=== PATIENT | male | born 1945 | race Caucasian/White ===

== ENCOUNTER → 2024-01-02 10:19 | Outpatient (REF) | payer MEDICARE, SELFPAY | LOC: RCS 10:19 | PROVIDERS: ATTENDING PHYSICIAN Internal Medicine Cardiovascular Disease; FAMILY PHYSICIAN Nurse Practitioner | DX: I49.3 Ventricular premature depolarization (principal) | CPT/HCPCS: 93225; 93226 ==

== ENCOUNTER → 2024-01-08 10:12 | Outpatient (REF) | payer MEDICARE, SELFPAY | LOC: DHCBC MAIN 10:12 | PROVIDERS: ATTENDING PHYSICIAN Internal Medicine Cardiovascular Disease; FAMILY PHYSICIAN Nurse Practitioner | DX: I49.3 Ventricular premature depolarization (principal) | CPT/HCPCS: 93306 ==

== ENCOUNTER → 2024-02-24 08:46 | Outpatient (REF) | payer MEDICARE, SELFPAY | LOC: RAD 08:46 | PROVIDERS: ATTENDING PHYSICIAN Internal Medicine; FAMILY PHYSICIAN Nurse Practitioner | DX: R09.89 Other specified symptoms and signs involving the circulatory and respiratory systems (principal) | CPT/HCPCS: 71046 ==

== ENCOUNTER 2024-05-22 17:40 | Emergency (ER) | payer MEDICARE, SELFPAY ==
[2024-05-22 17:43] VITALS: BP 140/84
[2024-05-22 18:11] LABS: % Basophils 0.4 % (0-2); % Immature Granulocytes 0.3 % (0-0.5); % Lymphocytes 22.6 % (20.5-51.1); % Monocytes 11.8 % (1.7-9.3); % Neutrophils 64.9 % (42.2-75.2); ALT (SGPT) 43 U/L (0-50); AST (SGOT) 35 U/L (17-59); Absolute Lymphocytes 1.7 10^3/uL (1.2-3.4); Absolute Monocytes 0.9 10^3/uL (0.1-0.6); Absolute Neutrophils 4.9 10^3/uL (1.4-6.5); Albumin 4.2 g/dl (3.5-5.0); Alkaline Phosphatase 108 U/L (38-126); Blood Urea Nitrogen 30 mg/dl (9-20); Calcium 9.4 mg/dl (8.4-10.2); Carbon Dioxide 25 mmol/L (22-30); Chloride 106 mmol/L (98-107); Glucose 130 mg/dl (70-99); Hematocrit 41.9 % (39.0-52.0); Mean Corpuscular Hgb 26.2 pg (27.0-31.0); Mean Corpuscular Volume 84.3 fL (80.0-94.0); Mean Platelet Volume 10.5 fL (7.4-10.4); Nucleated Red Blood Cells % 0 % (-); Platelet Count 208 10^3/uL (130-400); Potassium 4.3 mmol/L (3.5-5.1); Red Blood Cell Count 4.97 10^6/uL (4.70-6.10); Red Cell Dist. Width 19.2 % (11.5-14.5); Sodium 140 mmol/L (135-145); Total Bilirubin 0.6 mg/dl (0.2-1.3); White Blood Cell Count 7.6 10^3/uL (4.8-10.8); eGFR 33.32
[2024-05-22 18:12] LABS: Lipase 43 U/L (23-300)
--- NOTE | 2024-05-22 19:20 | ED.GENMED ---
History of Present Illness
General
Chief Complaint: Abdominal Symptoms
Source: patient and spouse
Exam Limitations: none
Time Seen by Provider: 05/22/24 18:31
History of Present Illness
History of Present Illness:
This is a 79 year old male that comes in with c/o abd pain. States that starting 3 days ago he started to not be able to eat much. States that he was 'spitting up'phlegm. states that he feels bloated. Then this am he tried [place], [employer] and
then he tried to eat a muffin. States that this seemed to be ok. Then tonight he tried a 1/2 of hamburger and he was nauseated, vomiting and feeling bloated. Denies any fever, chills, chest pain, SOB, diarrhea, headache, dizziness, urinary burning.
Past History
Past History
ED Past Medical History: CAD, Cancer (Skin CA), GERD, HTN, Hypercholesterolemia, NIDDM and Other (Neuropathy, Sleep apnea, Kidney disease)
ED Past Surgical History: None and Cardiac (Ablation for PVC's, stent)
Social History
Tobacco: Other (Occasional Cigar)
Alcohol: Occasional
Personal:
Living: with family
Employment: Retired
Review of Systems
Review of Systems
All Other Systems: ROS reviewed and negative except as documented in HPI and ROS
Constitutional: Reports no symptoms; Denies fever or chills
EENT: Reports no symptoms
Respiratory: Reports no symptoms; Denies cough or trouble breathing
Cardiac: Reports no symptoms; Denies chest pain
ABD/GI: Reports abdominal pain, nausea and vomiting; Denies diarrhea
: Reports no symptoms; Denies dysuria, frequency or urgency
Musculoskeletal: Reports no symptoms
Skin: Reports no symptoms
Neurological: Reports no symptoms; Denies dizzy or headache
Psychiatric: Reports no symptoms
Phy Exam
General Physical Exam
General Presentation: no apparent distress
General age: appears stated age
General Skin: warm and dry
General Habitus: elderly
General Mental: alert
General Hydration: appears well hydrated
ENT Exam
ENT Exam: TM's normal, pharynx normal and neck supple
Eye Exam
Eye Exam: EOMI
Cardiovascular Exam
Cardiovascular Exam: no murmur and normal peripheral pulses
Pulmonary Exam
Pulmonary Exam: no respiratory distress, chest non tender, no rhonchi, no wheezing, no cough and other (Rales Left base)
Gastrointestinal Exam
Gastrointestinal Exam: normal bowel sounds, soft, no pulsatile mass, non distended and tender (Slight left sided tenderness)
Musculoskeletal Exam
Musculoskeletal Exam: full ROM and edema (+2 pitting edema of the feet and lower legs)
Skin Exam
Skin Exam: normal color, warm/dry, no petechia and other (areas of Mohs surgery, right ear and nose)
Psychiatric Exam
Psychiatric Exam: normal mood/affect
Course
Orders/Labs/Results
Orders:
Orders
05/22/24 17:47
Complete Blood Count/With Diff Urgent
Comprehensive Metabolic Panel Urgent
Lipase Urgent
05/22/24 18:56
CT Abd/pel (oral only)-DH Only Urgent
Comment:
Reason For Exam: Bloating. Left sided tenderness
Iohexol [Omnipaque] See Protocol PO NOW STA
CR Chest - 2 Views Urgent
Comment:
Reason For Exam: abd pain, rales
05/22/24 19:29
Ondansetron Injectable [Zofran] 4 mg IV NOW STA
05/22/24 19:34
NT-proBNP Urgent
Troponin I Urgent
05/22/24 19:35
Electrocardiogram (*1) Urgent
Reason for Study: Abdominal Pain
EKG- Treatment ONCE
05/22/24 20:55
Urinalysis Reflex To Culture Urgent
Date Specimen was Collected: 05/22/24
Time Specimen was Collected: 20:54
Abnormal Lab Results
05/22/24 05/22/24
17:47 20:55
MCH 26.2 L pg
(27.0-31.0)
MCHC 31.0 L g/dL
(33.0-37.0)
RDW 19.2 H %
(11.5-14.5)
MPV 10.5 H fL
(7.4-10.4)
Absolute Monos (auto) 0.9 H 10^3/uL
(0.1-0.6)
Monocytes % 11.8 H %
(1.7-9.3)
BUN 30 H mg/dl
(9-20)
Creatinine 2.0 H mg/dL
(0.7-1.3)
Glucose 130 H mg/dl
(70-99)
Urine Ketones Trace A
(Negative)
Urine Glucose 3+ A
(Negative)
05/22/24 17:47
05/22/24 17:47
chronic renal insufficience glucose nonfasting. Lipase normal at 43, Troponin <0.012 Pror-BNP 101
Vital Signs
Initial and Last Documented VS:
Initial Vital Signs
Temp Pulse Resp BP Pulse Ox
98.2 F 82 17 140/84 97
05/22/24 17:43 05/22/24 17:43 05/22/24 17:43 05/22/24 17:43 05/22/24 17:43
Last Documented Vital Signs
Temp Pulse Resp BP Pulse Ox
98.2 F 71 20 137/87 94
05/22/24 17:43 05/22/24 22:13 05/22/24 22:13 05/22/24 22:01 05/22/24 21:45
MDM/Problems Addressed
Differential Diagnosis Includes:
worsening kidney function. CHF, Viral syndrome
MDM/Problems Addressed:
This is a 79 year old male that comes in with c/o abd bloating and nausea/vomiting. States that this started 3 days ago. Today he tried multiple things but this did not help and he was vomiting after he tried to eat dinner.
Will check labs, chest x-ray, CT abd. Urine
Back into see patient. Explained that his Blood work shows is chronic renal insufficiency. The CT scan shows you Hiatal hernia but there is nothing acute in the abd/pelvis. There is a nodule noted in the lung that is new. This will need to be
followed up with the PCP and have a CT scan specific for the chest. Patient to return with any concerns.
Chronic conditions affecting care: DM and CAD
Acute Exacerbation and/or Progression of Chronic Illness: CAD
*Radiology
Radiology exam reviewed: radiology read reviewed (Chest-Asymmetric elevation of left diaphragm is again demonstrated, with mild adjacent atelectasis. Lungs are otherwise clear. No vascular congestion or evidence to suggest congestive heart failure.
No Pneumothorax. CT abd/pelvis- Minor diverticulosis without acute diverticulitis. No bowel) and all reviewed NAD by ED Provider (CT cont- no bowel obstruction. Mild constipation. No obstructive uropathy. No acute inflammatory process within the
abdomen or pelvis. Hiatal hernia with associated asymmetric elevation of left diaphragm. 7.4mm pulmonary nodule at the posterior-superior right diaphragmatic margin. This appears new. )
*Pulse Oximetry
Patient hypoxic: no
*Coding Support Specialist Interpretation
Rate: Coding Support Specialist- N/A
*Critical Care Note
Total Time (30-74mins, 75-104mins- exclusive of procedures): Not Applicable
ED Attending Note
-
Portions of this chart may have been created with voice recognition software.� Occasional wrong word or��sound alike� substitutions may have occurred due to the inherent limitations of voice recognition software.
Discharge Plan
Departure
Patient Disposition: Home (Routine Discharge)
Date of Disposition: 05/22/24
Time of Disposition: 23:09
Patient with high blood pressure during this ER visit?: Yes
Condition: Good
Covid-19: Not Applicable
Discharge Problem:
Nausea & vomiting, Abdominal pain
Instructions: Nausea and Vomiting, Adult (DC), Abdominal Pain, BLOOD PRESSURE
Prescriptions:
New
ondansetron 4 mg tablet,disintegrating
4 mg PO Q8H PRN (Reason: nausea and vomiting) Qty: 7 0RF
No Action
glipizide 5 mg Tablet
2.5 mg PO DAILY
atorvastatin 40 mg tablet
40 mg PO QPM Qty: 90 10RF
clopidogrel 75 mg tablet
75 mg PO DAILY Qty: 90 10RF
nitroglycerin 0.4 mg tablet, sublingual
0.4 mg sublingual [id number] PRN (Reason: chest pain) Qty: 25 5RF
Patient Comments:
Pt states he has never had to use this med
pantoprazole 40 mg tablet,delayed release (DR/EC)
40 mg PO DAILY Qty: 90 10RF
aspirin 81 mg Tablet,Delayed Release (Dr/Ec)
81 mg PO DAILY
metoprolol succinate 25 mg Tablet Extended Release 24 Hr
25 mg PO BID Qty: 60 1RF
Referrals:
Liset Doyle CRNP [Family Provider] - Follow up in 2-3 days
Activity Restrictions/Additional Instructions:
As discussed, your blood work shows your chronic renal insufficiency. Your CT is negative for any acute process in the abd/pelvis. There is a new nodule in the right lung. This will need to be followed up with the family doctor and possible a CT of
the chest. Please increase your water intake to 8-8oz glasses daily. Follow up with the family doctor for recheck. IF YOU HAVE ANY OTHER CONCERNS PLEASE RETURN TO THE EMERGENCY ROOM.
Interventions
Interventions:
*Risk Screen - Suicide Last Done: 05/22/24 20:41
*Neglect/Abuse Screening Last Done: 05/22/24 20:41
ED- Fall Risk Assessment Last Done: 05/22/24 20:41
OJ-Hvqvpg-Runlnvlint Assessment Last Done: 05/22/24 20:41
Discharge Date and Time
Print Language: SETSWANA
[2024-05-22 19:26] VITALS: BMI 30.4
[2024-05-22] MEDS: OMNIPAQUE 50 ML PO (19:27)
[2024-05-22] MEDS: ZOFRAN 4 MG IV (19:41)
[2024-05-22 19:45] VITALS: BP 128/76
[2024-05-22 20:08] LABS: NT-proBNP 101 pg/ml; Troponin I < 0.012 ng/ml
[2024-05-22 21:09] LABS: Urine Albumin Trace (Neg - Trace); Urine Bilirubin Negative (Negative); Urine Character Clear (Clear); Urine Color Yellow; Urine Glucose 3+ (Negative); Urine Ketone Trace (Negative); Urine Leukocyte Negative (Negative); Urine Nitrite Negative (Negative); Urine Occult Blood Negative (Negative); Urine Urobilinogen 1+ (Neg - 1+)
[2024-05-22 22:01] VITALS: BP 137/87
[2024-05-22 23:00] VITALS: BP 122/83
== END 2024-05-22 23:30 | disposition home or self-care (01) ==
LOC: EMR 17:40
PROVIDERS: Clinical Nurse Specialist Family Health; Emergency Medicine; EMERGENCY PHYSICIAN Emergency Medicine; FAMILY PHYSICIAN Nurse Practitioner
DX: R11.2 Nausea with vomiting, unspecified (principal); R10.9 Unspecified abdominal pain; R14.0 Abdominal distension (gaseous); R03.0 Elevated blood-pressure reading, without diagnosis of hypertension; J98.11 Atelectasis; K59.00 Constipation, unspecified; K44.9 Diaphragmatic hernia without obstruction or gangrene; R91.1 Solitary pulmonary nodule; E11.22 Type 2 diabetes mellitus with diabetic chronic kidney disease; N18.9 Chronic kidney disease, unspecified; K21.9 Gastro-esophageal reflux disease without esophagitis; E11.40 Type 2 diabetes mellitus with diabetic neuropathy, unspecified; R60.0 Localized edema; E78.00 Pure hypercholesterolemia, unspecified; G47.30 Sleep apnea, unspecified; F17.290 Nicotine dependence, other tobacco product, uncomplicated; Z79.82 Long term (current) use of aspirin; Z79.84 Long term (current) use of oral hypoglycemic drugs
CPT/HCPCS: 99285; 96374; 71046; 74176; 80053; 81003; 83690; 83880; 84484; 85025; 93005

== ENCOUNTER → 2024-08-25 14:04 | Outpatient (REF) | payer MEDICARE, SELFPAY | LOC: HWRAD 14:04 | PROVIDERS: ATTENDING PHYSICIAN Nurse Practitioner | DX: R91.1 Solitary pulmonary nodule (principal); N18.32 Chronic kidney disease, stage 3b | CPT/HCPCS: 71250 ==

== ENCOUNTER → 2024-09-03 08:40 | Outpatient (REF) | payer MEDICARE, SELFPAY | LOC: RSP 08:40 | PROVIDERS: ATTENDING PHYSICIAN Internal Medicine; FAMILY PHYSICIAN Nurse Practitioner | DX: I49.3 Ventricular premature depolarization (principal); Z79.899 Other long term (current) drug therapy | CPT/HCPCS: 94727; 94729; 88738; 94060 ==

== ENCOUNTER 2024-09-20 17:38 | Inpatient (IN) | payer MEDICARE, SELFPAY ==
[2024-09-20] VITALS (15 sets, daily range): BP systolic 104–139; BP diastolic 60–98; BMI 29.6
[2024-09-20 12:06] LABS: % Basophils 0.2 % (0-2); % Eosinophils 0.9 % (0-6); % Immature Granulocytes 0.4 % (0-0.5); % Lymphocytes 8.2 % (20.5-51.1); % Monocytes 7.1 % (1.7-9.3); % Neutrophils 83.2 % (42.2-75.2); Absolute Eosinophils 0.1 10^3/uL (0-0.7); Absolute Lymphocytes 0.8 10^3/uL (1.2-3.4); Absolute Monocytes 0.7 10^3/uL (0.1-0.6); Absolute Neutrophils 8.5 10^3/uL (1.4-6.5); Hematocrit 47.2 % (39.0-52.0); Hemoglobin 14.9 g/dL (13.0-18.0); Mean Corp Hgb Conc. 31.6 g/dL (33.0-37.0); Mean Corpuscular Volume 88.6 fL (80.0-94.0); Mean Platelet Volume 10.6 fL (7.4-10.4); Nucleated Red Blood Cells % 0 % (-); Platelet Count 212 10^3/uL (130-400); Red Blood Cell Count 5.33 10^6/uL (4.70-6.10); Red Cell Dist. Width 18.5 % (11.5-14.5); White Blood Cell Count 10.2 10^3/uL (4.8-10.8)
[2024-09-20 12:27] LABS: NT-proBNP 222 pg/ml
[2024-09-20 12:30] LABS: ALT (SGPT) 46 U/L (0-50); AST (SGOT) 43 U/L (17-59); Albumin 4.5 g/dl (3.5-5.0); Alkaline Phosphatase 87 U/L (38-126); Blood Urea Nitrogen 47 mg/dl (9-20); Calcium 9.9 mg/dl (8.4-10.2); Carbon Dioxide 25 mmol/L (22-30); Chloride 105 mmol/L (98-107); Estimated Creatinine Clearance 25 ml/min; Glucose 167 mg/dl (70-99); Lipase 54 U/L (23-300); Potassium 4.9 mmol/L (3.5-5.1); Sodium 144 mmol/L (135-145); Total Bilirubin 0.8 mg/dl (0.2-1.3); Total Protein 7.7 g/dl (6.3-8.2); eGFR 24.32
--- NOTE | 2024-09-20 12:54 | ED.GENMED ---
History of Present Illness
General
Chief Complaint: Abdominal Pain
Source: patient
Exam Limitations: none
Time Seen by Provider: 09/20/24 11:23
Nursing documentation reviewed up to this point in time: agreed with
History of Present Illness
History of Present Illness:
79 Y/O M with h/o CKD stage III, cad
here with nausea/vomiting since 4 pm last night. pt went out to eat, had a few bites of food (steak, soup) and stopped and felt sick and started vomiting when he went home. he didn't feel like anything was stuck in his throat. he tried 2 left
over doses of zofran from previous ed visitn 05/2024 when he had same thing and it didn't help
pt has still bringing up emesis, mostly just small amount of liquid becuase he isn't able to keep anythin down
he has minimal if any discomfort in the epigastric regin
pt happens to have outpateint Gi f/u at this week, hasn't been seen in a long while
he has barretts and a large hiatal hernia
no blood or black emesis
Past History
Past History
ED Past Medical History: CAD, Cancer (Skin CA), GERD, HTN, Hypercholesterolemia, NIDDM and Other (Neuropathy, Sleep apnea, Kidney disease)
ED Past Surgical History: None and Cardiac (Ablation for PVC's, stent)
Social History
Tobacco: Other (Occasional Cigar)
Alcohol: Occasional
Personal:
Living: with family
Employment: Retired
Review of Systems
Review of Systems
Allergies reviewed?: Yes
All Other Systems: Not applicable
Phy Exam
Physical Exam
Physical Exam:
GENERAL: Alert , in no apparent distress, not regurgitating saliva, tolerating secretions but occasionally vomiting
EYE: pupils equal and reactive
NECK: Supple
ENT: o/p clr, mmm.
CARDIAC: Regular rate and rhythm .
LUNGS: Clear breath sounds bilaterally, no acute respiratory distress, no wheezes/rales/rhonchi
ABDOMEN: Soft, minimal epigastric tenderness no r/g, no cvat, normal bowel sounds
NEUROLOGICAL: Alert and oriented, no focal neuro deficits
SKIN: Warm and dry, skin intact.
MUSCULOSKELETAL: No edema, well perfused. neg nevaeh's sign
PSYCH: Normal and appropriate interaction.
Course
Orders/Labs/Results
Orders:
Orders
09/20/24 11:50
Complete Blood Count/With Diff Urgent
Comprehensive Metabolic Panel Urgent
Lipase Urgent
09/20/24 11:56
NT-proBNP Urgent
09/20/24 11:57
Electrocardiogram (*1) Urgent
Reason for Study: Heart Failure, Left
EKG- Treatment ONCE
CR Chest - 2 Views Urgent
Comment:
Reason For Exam: edema legs
09/20/24 12:21
Metoclopramide [Reglan] 10 mg IV NOW STA
09/20/24 12:58
0.9% Sodium Chloride 250 ml [Nss] 250 ml IV BOLUS
09/20/24 13:43
CT Chest/abd/pel Wo Iv Cont Urgent
Comment:
Reason For Exam: VOMITING/REGURGITATING; LARGE HERNIA
09/20/24 16:24
NG Tube [GI tube insertion- Treatment] ONCE
Abnormal Lab Results
09/20/24
11:50
MCHC 31.6 L g/dL
(33.0-37.0)
RDW 18.5 H %
(11.5-14.5)
MPV 10.6 H fL
(7.4-10.4)
Absolute Neuts (auto) 8.5 H 10^3/uL
(1.4-6.5)
Absolute Lymphs (auto) 0.8 L 10^3/uL
(1.2-3.4)
Absolute Monos (auto) 0.7 H 10^3/uL
(0.1-0.6)
Neutrophils % 83.2 H %
(42.2-75.2)
Lymphocytes % 8.2 L %
(20.5-51.1)
BUN 47 H mg/dl
(9-20)
Creatinine 2.6 H mg/dL
(0.7-1.3)
Glucose 167 H mg/dl
(70-99)
09/20/24 11:50
09/20/24 11:50
Vital Signs
Initial and Last Documented VS:
Initial Vital Signs
Temp Pulse Resp BP Pulse Ox
36.6 C 87 20 109/60 97
09/20/24 10:27 09/20/24 10:27 09/20/24 10:27 09/20/24 10:27 09/20/24 10:27
Last Documented Vital Signs
Temp Pulse Resp BP Pulse Ox
36.6 C 86 20 122/67 97
09/20/24 10:27 09/20/24 16:00 09/20/24 16:00 09/20/24 16:00 09/20/24 12:00
MDM/Problems Addressed
Differential Diagnosis Includes:
gastritis, hiatal hernia, food bolus, bowel obstruction
MDM/Problems Addressed:
nuvia iqbal 79 y/o M with h/o HTN, CAD, CKD stage III
here with vomiting since 4 pm yesterday; ate small amount of food/steak, didn't feel it get stuck
vomited throughout the night, watery/bilious emesis; would get gurgling in his epigastric region and then bright up saliva/gastric contents; not much pain
vitals stable
nontoxic
spitting up occasionally but not really regurgitating liquids
labs mild MYRNA
ct shows: Large hiatal hernia; combination hernia with a sliding component as well as a paraesophageal component.
Gastric volvulus with mesentero-axial rotation. Gastric outlet obstruction secondary to extrinsic compression at the level of the gastric antrum/pylorus, as described. No gastric wall thickening, soft tissue stranding, or fluid within the hernia.
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
i will admit to medicine with GI/surgery consults
dr. gordon and gena both recommend NGT.
*Critical Care Note
Total Time (30-74mins, 75-104mins- exclusive of procedures): Not Applicable
ED Attending Note
-
Portions of this chart may have been created with voice recognition software.� Occasional wrong word or��sound alike� substitutions may have occurred due to the inherent limitations of voice recognition software.
Discharge Plan
Departure
Patient Disposition: Admit
Date of Disposition: 09/20/24
Time of Disposition: 16:14
Admit to: IMU
Presentation/result/management discussed w/ accepting MD/DO: Hospitalist
Condition: Fair
Covid-19: Not Applicable
Discharge Problem:
Gastric volvulus
Prescriptions:
No Action
glipizide 5 mg Tablet
2.5 mg PO DAILY
atorvastatin 40 mg tablet
40 mg PO QPM Qty: 90 10RF
clopidogrel 75 mg tablet
75 mg PO DAILY Qty: 90 10RF
nitroglycerin 0.4 mg tablet, sublingual
0.4 mg sublingual [id number] PRN (Reason: chest pain) Qty: 25 5RF
Patient Comments:
Pt states he has never had to use this med
pantoprazole 40 mg tablet,delayed release (DR/EC)
40 mg PO DAILY Qty: 90 10RF
aspirin 81 mg Tablet,Delayed Release (Dr/Ec)
81 mg PO DAILY
metoprolol succinate 25 mg Tablet Extended Release 24 Hr
25 mg PO BID Qty: 60 1RF
ondansetron 4 mg tablet,disintegrating
4 mg PO Q8H PRN (Reason: nausea and vomiting) Qty: 7 0RF
Referrals:
Liset Doyle CRNP [Family Provider] -
Interventions
Interventions:
*Risk Screen - Suicide Last Done: 09/20/24 10:27
*General Assessment Last Done: 09/20/24 12:03
*Neglect/Abuse Screening Last Done: 09/20/24 10:27
*ED COVID-19 Vaccine History Last Done: 09/20/24 12:01
WB-Ojqimu-Ynutbvfjhu Assessment Last Done: 09/20/24 12:00
Discharge Date and Time
Print Language: AFGHAN
[2024-09-20] MEDS: REGLAN 10 MG IV (12:56)
[2024-09-20] MEDS: NSS 250 IV (13:50)
--- NOTE | 2024-09-20 16:27 | HPS.HSE ---
Family Physician
-
Family Physician: FAB Veras
Chief Complaint
-
abdominal pain
History of Present Illness
Patient is a 79-year-old male with past medical history significant for chronic kidney disease 3b, CAD, hyperlipidemia, hypertension, type 2 diabetes and GERD who presented to [facility] ED for evaluation of abdominal pain with nausea and vomiting
for past 24-hours. Patient reports normal bowel movement 2 days ago. He has had decreased appetite for 6+ months since Jardiance with started and has lost approximately 30 pounds since then. Patient denies any fever, chills, shortness of breath,
cough, chest pain, constipation, diarrhea or urinary symptoms.
Medical History
Past Medical History
Past Medical History: Reports Other
Additional Past Medical History:
chronic kidney disease 3b
CAD
hyperlipidemia
hypertension
type 2 diabetes
GERD
malignant melanoma (1992)
Past Surgical History: Reports Other
Additional Past Surgical History:
cardiac stent
MOHS
cardiac ablation
Social History
Tobacco: Non-smoker
Alcohol: Occasional
Drug: None
Personal:
Living: With Family
Employment: Retired
Family History
Family History: Not pertinent
Allergies / Home Medications
Allergies reflects when Allergies were last updated in [facility].
Home Medications with original date entered in [facility]
Allergy/Medication List:
Allergies
Allergy/AdvReac Type Severity Reaction Status Date / Time
No Known Allergies Allergy Verified 09/20/24 10:27
Home Medications
glipizide 5 mg tablet 2.5 mg PO DAILY 03/01/23
pantoprazole 40 mg tablet,delayed release 40 mg PO DAILY #90 tabs 03/01/23
aspirin 81 mg tablet,delayed release 81 mg PO DAILY 06/13/23
atorvastatin 80 mg tablet (Lipitor) 80 mg PO QPM 09/20/24
bismuth subsalicylate 262 mg tablet (Pepto-Bismol) 524 mg PO DAILYPRN PRN gerd 09/20/24
empagliflozin 10 mg tablet (Jardiance) 10 mg PO DAILY 09/20/24
lisinopril 10 mg tablet 10 mg PO DAILY 09/20/24
ondansetron 4 mg disintegrating tablet 4 mg PO Q8HPRN PRN nausea and vomiting 09/20/24
simethicone 80 mg chewable tablet 80 mg PO BIDPRN PRN gas pains 09/20/24
Review of Systems
-
History Source: Patient
Constitutional: Reports Weight Loss and Sleep Disturbance
EENT: Reports No Symptoms
Respiratory: Reports No Symptoms
Cardiac: Reports No Symptoms
Abdomen/GI: Reports Abdominal Pain, Nausea and Vomiting
: Reports No Symptoms
Musculoskeletal: Reports No Symptoms
Skin: Reports No Symptoms
Neurological: Reports No Symptoms
Endocrine: Reports No Symptoms
Hematologic/Lymphatic: Reports No Symptoms
Psych: Reports No Symptoms
Physical Exam
Vital Signs
Vital Signs
Temp Pulse Resp BP Pulse Ox
97.8 F 86 20 122/67 97
09/20/24 10:27 09/20/24 16:00 09/20/24 16:00 09/20/24 16:00 09/20/24 12:00
Physical Exam
General: Well Developed, Well Nourished, No Apparent Distress, Conversant and Obese
HEENT: NormoCephalic, Moist mucous membranes, Atraumatic, [place] Conjunctivae, Nose Appears Normal and Ears Appear Normal
Respiratory: Clear and Non Labored Respirations; No Wheezes, Rales, Rhonchi or Crackles
Cardiac: S1/S2 and Regular Rhythm; No Murmur, Rub or Gallop
Breast: Deferred by me
GI: Soft, Non Tender, Distended and Other (no bowel sounds auscultated, NGT in place for decompression); No Organomegaly
Rectal: Deferred by Provider
Musculoskeletal: No Clubbing, No Cyanosis and No Edema
Skin: Warm and IV/Catheter Site; No Rash
Neuro: Awake, Alert, AO x 3 and Nonfocal/grossly intact
Hematologic/Lymphatic: No Lymphadenopathy
Psych: Calm and Intact Judgment/Insight
Laboratory Results
-
09/20/24 11:50
09/20/24 11:50
Laboratory Results
Total Bilirubin 0.8 mg/dl (0.2-1.3) 09/20/24 11:50
AST 43 U/L (17-59) 09/20/24 11:50
ALT 46 U/L (0-50) 09/20/24 11:50
Alkaline Phosphatase 87 U/L (38-126) 09/20/24 11:50
Lipase 54 U/L (23-300) 09/20/24 11:50
Data Reviewed
-
Diagnostic Radiology: Report Reviewed by me (CXR: Stable appearance of the chest, including large hiatal hernia and asymmetric elevation of left diaphragm. No acute cardiopulmonary process.)
CT Scan: Report Reviewed by me (abd: Large hiatal hernia; combination hernia with a sliding component as well as a paraesophageal component. Gastric volvulus with mesentero-axial rotation. Gastric outlet obstruction secondary to extrinsic
compression at the level of the gastric antrum/pylorus, as described. No gastric wall thicke)
Medical Tests (Nuc Med, Echo, EKG etc): Report Reviewed by me (EKG: SINUS RHYTHM WITH 1ST DEGREE A-V BLOCK WITH PREMATURE ATRIAL COMPLEXES WITH Aberrant conduction LEFT ANTERIOR FASCICULAR BLOCK POSSIBLE LATERAL INFARCT , AGE UNDETERMINED)
Lab Data: Labs Reviewed by me (BUN 47, Creat 2.6)
Impression/Plan
-
IMPRESSION/PLAN:
#Gastric volvulus with mesentero-axial rotation
#Gastric outlet obstruction secondary to extrinsic compression at the level of the gastric antrum/pylorus
CXR: As before, there is a large hiatal hernia with asymmetric elevation of left diaphragm. Stable. Air-fluid level within the stomach.
No evidence of pneumonia or congestive heart failure. No pneumothorax or pleural effusion.
Chest/Abd CT: Large hiatal hernia; combination hernia with a sliding component as well as a paraesophageal component.
Gastric volvulus with mesentero-axial rotation. Gastric outlet obstruction secondary to extrinsic compression at the level of the gastric antrum/pylorus, as described. No gastric wall thickening, soft tissue stranding,
or fluid within the hernia.
Nonspecific soft tissue stranding of the distal periaortic fat extending along the iliac vessels, in a relatively symmetric bilateral fashion. Exact etiology uncertain. Possibly nonspecific inflammatory changes
(retroperitoneal fibrosis), or vascular inflammatory condition/vasculitis. No aneurysm.
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 Further evaluation/characterization with nonemergent follow-up MRI recommended.
- Admit to med/surg
- GI consult
- General surgery consult
- NPO
- IVF
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
- GI Consult
#chronic kidney disease 3b
BUN 47, Creat 2.6
- IVF
- trend creatine
#CAD
#hyperlipidemia
- continue aspirin and atorvastatin
#benign hypertension
- hold amlodipine for MYRNA
- monitor VS
#type 2 diabetes
- hold glipizide and Jardiance
- Accuchecks AC & HS
- SSI
#GERD
- continue pantoprazole
#malignant melanoma (1992)
Code Status: Full Code
DVT Prophylaxis: SCDs
--- NOTE | 2024-09-20 18:04 | W.PN.UPDATE ---
Update Note
Progress Note Update
This note serves as an addendum to the H&P by automobile sales representative ROBERT Gwendolyn Porter
HPI
79M HX CKD3b,CAD, HTN HLD, T2DM seen at ER:
- evaluation of abdominal pain with nausea and vomiting for past 24-hours.
- normal bowel movement 2 days
- decreased appetite for 6+ months since Jardiance and lost approximately 30 pounds since then.
ROS
Denies any fever, chills, shortness of breath, cough, chest pain, constipation, diarrhea or urinary symptoms.
PHX
chronic kidney disease 3b
CAD
hyperlipidemia
hypertension
type 2 diabetes
GERD
malignant melanoma (1992)
Past Surgical History: Reports Other
Additional Past Surgical History:
cardiac stent
MOHS
cardiac ablation
Vital Signs
Temp Pulse Resp BP Pulse Ox
97.8 F 86 20 122/67 97
09/20/24 10:27 09/20/24 16:00 09/20/24 16:00 09/20/24 16:00 09/20/24 12:00
PE
Gen: Not toxic , conversant
HEENT: moist OM
Neck: supple
Lungs: Non Labored Respirations
Cor:S1/S2 and Regular Rhythm
Abdomen: Soft, Non Tender, Distended , no bowel sounds auscultated,
NGT in place for decompression
SUPERVISOR PRODUCT INSPECTION: Awake, Alert, AO x 3
MS:
Psych:
Vital Signs
Temp Pulse Resp BP Pulse Ox
97.8 F 86 20 122/67 97
09/20/24 10:27 09/20/24 16:00 09/20/24 16:00 09/20/24 16:00 09/20/24 12:00
CXR:
As before, there is a large hiatal hernia with asymmetric elevation of left diaphragm. Stable. Air-fluid level within the stomach. No evidence of pneumonia or congestive heart failure. No pneumothorax or pleural effusion.
CT C/A/P wo IV cont
- Large hiatal hernia; combination hernia with a sliding component as well as a paraesophageal component.
Gastric volvulus with mesentera-axial rotation.
- Gastric outlet obstruction secondary to extrinsic compression at the level of the gastric antrum/pylorus, as described.
No gastric wall thickening, soft tissue stranding, or fluid within the hernia.
- Nonspecific soft tissue stranding of the distal periaortic fat extending along the iliac vessels, in a relatively symmetric bilateral fashion.
Exact etiology uncertain. Possibly nonspecific inflammatory changes (retroperitoneal fibrosis), or vascular inflammatory condition/vasculitis. No aneurysm.
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
Further evaluation/characterization with nonemergent follow-up MRI recommended.
ASSESSMENT & PLAN
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
- MRI abdomen
- await GI cs
Gastric volvulus c/w gastric outlet obstruction 2/2 extrinsic compression at the level of the gastric antrum/pylorus
- NGT for decompression
- NPO and IVF
- Narcotic analgesia PRN
- GI consult
- General surgery consult
MYRNA due to volume contraction form N/V GI loss
CKD3b baseline Creat low 2s with b/l eGFR low 30s
- IVF and trend Cr
CAD HX
Hyperlipidemia
- continue aspirin and atorvastatin
Benign hypertension
- continue metoprolol
T2DM
- hold Glipizide
- add ISS Low
GERD
- IV pantoprazole in place of PO
HX malignant melanoma (1992)
DVT Px: SCD
Full code
IP MS
--- NOTE | 2024-09-20 19:00 | EDRN ---
Report received, patient resting comfortably in the chair, call roth in reach.
--- NOTE | 2024-09-20 21:13 | EDRN ---
Helped patient get into bed and provided a new gown, resting comfortably with call roth in reach, NG tube is draining, will continue to monitor, released admission orders
[2024-09-20] MEDS: LR 1000 IV (21:25)
--- NOTE | 2024-09-20 22:42 | EDRN ---
Patient stood to urinate and back in bed resting comfortably at this time, call roth in reach.
[2024-09-21] VITALS (7 sets, daily range): BP systolic 114–144; BP diastolic 66–86
[2024-09-21] MEDS: ZOFRAN 4 MG IV ×2 (01:34→11:23)
[2024-09-21 01:40] LABS: Glucose - Point of Care 126 mg/dl (70-99)
[2024-09-21 06:31] LABS: Hematocrit 45.9 % (39.0-52.0); Hemoglobin 14.3 g/dL (13.0-18.0); Mean Corp Hgb Conc. 31.2 g/dL (33.0-37.0); Mean Corpuscular Hgb 27.6 pg (27.0-31.0); Mean Corpuscular Volume 88.6 fL (80.0-94.0); Mean Platelet Volume 10.7 fL (7.4-10.4); Platelet Count 193 10^3/uL (130-400); Red Blood Cell Count 5.18 10^6/uL (4.70-6.10); Red Cell Dist. Width 18.9 % (11.5-14.5); White Blood Cell Count 10.5 10^3/uL (4.8-10.8)
[2024-09-21 06:51] LABS: Blood Urea Nitrogen 55 mg/dl (9-20); Calcium 9.4 mg/dl (8.4-10.2); Carbon Dioxide 30 mmol/L (22-30); Chloride 106 mmol/L (98-107); Estimated Creatinine Clearance 26 ml/min; Glucose 137 mg/dl (70-99); Potassium 4.2 mmol/L (3.5-5.1); Sodium 146 mmol/L (135-145)
[2024-09-21] MEDS: PROTONIX IV 40 MG IV (07:44)
[2024-09-21] MEDS: NSS (PRESERVATIVE FREE) 10 ML IV (07:44)
[2024-09-21 07:52] LABS: Glucose - Point of Care 145 mg/dl (70-99)
--- NOTE | 2024-09-21 08:08 | CON.GI ---
Consultation
-
Date/Time Consultation Requested: 09/20/2024,20:51
Date/Time Consultation Performed: 09/21/2024,08:10
Requesting Provider: Gwendolyn Porter
Performing Provider: Francheska Rust
Reason for Consultation: Gastric Volvulus,Pancreatic mass
Medical History
Chief Complaint / HPI
Chief Complaint: Abdominal distension associated with nausea and vomiting
History of Present Illness:
Patient is a 79 yr old male with past medical history of Type2 DM,Benign hypertension,CAD,CKD3b,Hyperlipidemia,hiatal hernia and GERD.According to the patient he was in his usual state of health 1 day ago,he went out for dinner with his family and
had soup,couple of bites of steak and bread and then he started feeling pain in his abdomen,that was sudden in onset,progressive,non-radiating and intensified gradually.He came home and started throwing up,he had several episodes of vomiting ,every
10-15min,projectile and contact food particles but no blood.He ended up in emergency due to excessive vomiting and abdominal pain.
He reports a similar but less intense symptoms in last summer.He is aware of his hiatal hernia.He also reports 30lbs weight loss since starting Jardiance for his diabetes 6-8 months ago and decreased appetite since then.
On systemic review he denies any fever,chills,sob,palpitations,joint pains,constipation,diarrhea,weakness,anxiety or depression.
Past Medical History
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
Past Surgical History: Other (cardiac stent, MOHS, cardiac ablation)
Social History
Tobacco: Non-Smoker
Alcohol: Occasional
Drug: None
Personal:
Living: With Family
Employment: Retired
Family History
Family History: Reviewed & Not Pertinent
Allergies / Home Medications
Allergy/AdvReac Type Severity Reaction Status Date / Time
No Known Allergies Allergy Verified 09/20/24 10:27
�Medication �Instructions �Recorded
glipizide 5 mg tablet 2.5 mg PO DAILY 03/01/23
pantoprazole 40 mg tablet,delayed 40 mg PO DAILY #90 tabs 03/01/23
release
aspirin 81 mg tablet,delayed 81 mg PO DAILY 06/13/23
release
amiodarone 200 mg tablet 200 mg PO BID 09/20/24
amlodipine 10 mg tablet (Norvasc) 10 mg PO DAILY 09/20/24
atorvastatin 80 mg tablet (Lipitor) 80 mg PO QPM 09/20/24
bismuth subsalicylate 262 mg 524 mg PO DAILYPRN PRN gerd 09/20/24
tablet (Pepto-Bismol)
empagliflozin 10 mg tablet 10 mg PO DAILY 09/20/24
(Jardiance)
lisinopril 10 mg tablet 10 mg PO DAILY 09/20/24
ondansetron 4 mg disintegrating 4 mg PO Q8HPRN PRN nausea and 09/20/24
tablet vomiting
simethicone 80 mg chewable tablet 80 mg PO BIDPRN PRN gas pains 09/20/24
Review of Systems
-
All other systems: A 12 pt ROS was Negative except as stated above in HPI
Vital Signs
Temp Pulse Resp BP Pulse Ox
97.9 F 79 14 128/78 96
09/21/24 07:43 09/21/24 07:43 09/21/24 07:43 09/21/24 07:43 09/21/24 07:43
Physical Exam
Exam
General: Well Developed, Well Nourished and Other (NG tube in place )
HEENT: Anicteric and Moist Mucous Membranes
Respiratory: Clear and Other (No wheezes,ronchi or rales)
Cardiac: S1/S2 and Regular Rhythm
GI: Soft, Non Tender and Other (decreased bowel sounds)
Genito-urinary: No Costovertebral Tender
Musculoskeletal: No Clubbing and Other (bilateral pitting pedal edema)
Skin: Other (several SKs and AKs)
Neuro: Awake, Oriented and No Motor Deficits
Psych: Calm and Other (Pleasant and cooperative)
Results
WBC 10.5 10^3/uL (4.8-10.8) 09/21/24 05:07
Hgb 14.3 g/dL (13.0-18.0) 09/21/24 05:07
Hct 45.9 % (39.0-52.0) 09/21/24 05:07
MCV 88.6 fL (80.0-94.0) 09/21/24 05:07
Plt Count 193 10^3/uL (130-400) 09/21/24 05:07
Absolute Neuts (auto) 8.5 10^3/uL (1.4-6.5) H 09/20/24 11:50
Sodium 146 mmol/L (135-145) H 09/21/24 05:08
Potassium 4.2 mmol/L (3.5-5.1) 09/21/24 05:08
Chloride 106 mmol/L (98-107) 09/21/24 05:08
Carbon Dioxide 30 mmol/L (22-30) 09/21/24 05:08
BUN 55 mg/dl (9-20) H 09/21/24 05:08
Creatinine 2.5 mg/dL (0.7-1.3) H 09/21/24 05:08
Calcium 9.4 mg/dl (8.4-10.2) 09/21/24 05:08
Total Bilirubin 0.8 mg/dl (0.2-1.3) 09/20/24 11:50
AST 43 U/L (17-59) 09/20/24 11:50
ALT 46 U/L (0-50) 09/20/24 11:50
Alkaline Phosphatase 87 U/L (38-126) 09/20/24 11:50
Lipase 54 U/L (23-300) 09/20/24 11:50
Diagnostic Image Results:
CT CHEST/ABDOMEN/PELVIS 09/20/2024
IMPRESSION:
Large hiatal hernia; combination hernia with a sliding component as well as a paraesophageal component.
Gastric volvulus with mesentero-axial rotation. Gastric outlet obstruction secondary to extrinsic compression at the level of the gastric antrum/pylorus, as described. No gastric wall thickening, soft tissue stranding, or fluid within the hernia.
Nonspecific soft tissue stranding of the distal periaortic fat extending along the iliac vessels, in a relatively symmetric bilateral fashion. Exact etiology uncertain. Possibly nonspecific inflammatory changes (retroperitoneal fibrosis), or
vascular inflammatory condition/vasculitis. No aneurysm.
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 Further evaluation/characterization with nonemergent follow-up MRI recommended.
CHEST X-RAY 09/20/2024
IMPRESSION:
Stable appearance of the chest, including large hiatal hernia and asymmetric elevation of left diaphragm. No acute cardiopulmonary process.
Prior GI Procedures:
EGD:2012
Impression: - Esophageal mucosal changes consistent with
short-segment Barnhart's esophagus.
- Gastritis. This was biopsied.
- Normal gastric body. This was biopsied.
- Normal first part of the duodenum. Biopsy was
performed.
- Mucosa was biopsied in 4 quadrants at intervals of 1
cm.
Colonoscopy:2012
Impression: - One 10 mm polyp in the ascending colon. Resected and
retrieved.
- Diverticulosis in the transverse colon.
- Internal hemorrhoids.
Assessment / Plan
-
IMPRESSION
A 79y/M with PMH of DMtype2,Benign hypertension,CAD,GERD,Hiatal hernia who presented with nausea,vomiting and abdominal pain.
Last bowel movement two days ago
Air fluid level in stomach-consistent with Gastric volvulus
He is NPO,has NGT in place and is on IV Fluids.
He reports feeling better with improved pain since night,no vomiting since night
No NG output since night
Feeling queasy but attributes it to being NPO since night
ASSESSMENT/PLAN
1.Gastric Volvulus
Most likely secondary to hiatal hernia along with long standing GERD
NGT is showing no output
Lfts within normal limits,lipase normal
Do NGT flush and keep monitoring any output
Keep NPO
Await surgery consult
Discussed with patient the diagnosis and management options available
Keep monitoring for symptoms and gastric output
2. Pancreatic mass
CT CHEST/ABDOMEN/PELVIS 09/20/2024
IMPRESSION:
Large hiatal hernia; combination hernia with a sliding component as well as a paraesophageal component.
Gastric volvulus with mesentero-axial rotation. Gastric outlet obstruction secondary to extrinsic compression at the level of the gastric antrum/pylorus, as described. No gastric wall thickening, soft tissue stranding, or fluid within the hernia.
Nonspecific soft tissue stranding of the distal periaortic fat extending along the iliac vessels, in a relatively symmetric bilateral fashion. Exact etiology uncertain. Possibly nonspecific inflammatory changes (retroperitoneal fibrosis), or
vascular inflammatory condition/vasculitis. No aneurysm.
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 Further evaluation/characterization with nonemergent follow-up MRI recommended.
Await surgical consult
Eventual MRI of abdomen with contrast,inpatient vs outpatient
Serum lipase normal
Serum lfts normal
Can do a CA19-9
-
-
Thank you for consultation and allowing me to participate in the patient's care. Please call the it systems analyst consultant GI physician during the after hours with any questions or concerns.
[2024-09-21 09:58] LABS: Glycohemoglobin (HgbA1c) 6.4 % (4.0-5.6)
--- NOTE | 2024-09-21 10:10 | CON.GS ---
Addendum entered and electronically signed by Abilio Arnold MD 09/22/24 08:19:
Delayed entry note. Patient seen and examined on 09/21/2024.
I saw and examined the patient independently.
The Plastics Scientist's note was reviewed and I agree with the note, assessment and plan except where noted below.
Comment: This is a 79-year-old male with significant cardiac history, diabetes and known hiatal hernia presents with nausea vomiting. Initial NG tube was malpositioned and replaced with good effect.
Will plan for an upper GI on 09/22/2024
N.p.o., IV fluids, NG tube to low intermittent wall suction.
Possible surgical repair this admission versus as an outpatient depending on clinical course and findings.
General surgery will continue to follow
Original Note:
Consultation
-
Date/Time Consultation Requested: 09/20/242050
Requesting Provider: German
Medical History
-
Chief Complaint: vomiting
History of Present Illness:
Mr Ortega is a 79 yo male with a history of skin ca s/p MOHS, CAD s/p PCI 02/2023, PVC/VT ablation 06/13/23, CKD, NIDDM, GERD, and known hiatal hernia who presents with nausea and vomiting which developed while he was eating dinner at a restaurant.
He initially had bread and soup and then a few bites into his steak he began having symptoms of upper abdominal discomfort with vomiting. He notes that he has had episodes like this a few times before and was told it was due to hiatal hernia
although he has never followed up with a surgeon to discuss repair. He notes no further nausea or vomiting this am. An NGT was placed in the ED with recorded output of 570ml. He denies abdominal pain currently.
Past Medical History
Past Medical History: Arrhythmias, CAD (CAD with PCI 02/2023), Cancer (melanoma skin s/p mohs), GERD, HTN, Hypercholesterolemia, NIDDM, Renal Failure (CKD) and Other (JOÃO)
Past Surgical History: Cardiac (PCI 02/2023, PVC/VT ablation 06/13/23 ) and Other (MOHs)
Social History
Tobacco: Non-Smoker
Alcohol: Occasional
Personal:
Living: With Family
Family History
Family History: CAD
Allergies / Home Medications
Allergy/AdvReac Type Severity Reaction Status Date / Time
No Known Allergies Allergy Verified 09/20/24 10:27
�Medication �Instructions �Recorded �Confirmed �Type
glipizide 5 mg tablet 2.5 mg PO DAILY 03/01/23 09/20/24 History
pantoprazole 40 mg tablet,delayed 40 mg PO DAILY #90 tabs 03/01/23 09/20/24 Rx
release
aspirin 81 mg tablet,delayed 81 mg PO DAILY 06/13/23 09/20/24 History
release
amiodarone 200 mg tablet 200 mg PO BID 09/20/24 09/20/24 History
amlodipine 10 mg tablet (Norvasc) 10 mg PO DAILY 09/20/24 09/20/24 History
atorvastatin 80 mg tablet (Lipitor) 80 mg PO QPM 09/20/24 09/20/24 History
bismuth subsalicylate 262 mg 524 mg PO DAILYPRN PRN gerd 09/20/24 09/20/24 History
tablet (Pepto-Bismol)
empagliflozin 10 mg tablet 10 mg PO DAILY 09/20/24 09/20/24 History
(Jardiance)
lisinopril 10 mg tablet 10 mg PO DAILY 09/20/24 09/20/24 History
ondansetron 4 mg disintegrating 4 mg PO Q8HPRN PRN nausea and 09/20/24 09/20/24 History
tablet vomiting
simethicone 80 mg chewable tablet 80 mg PO BIDPRN PRN gas pains 09/20/24 09/20/24 History
Review of Systems
-
History Source: Patient
All other systems: Negative unless noted
A 10 point review of systems was completed, and was negative except as per HPI.
Physical Exam
Vital Signs
Temp Pulse Resp BP Pulse Ox
97.9 F 79 14 128/78 96
09/21/24 07:43 09/21/24 07:43 09/21/24 07:43 09/21/24 07:43 09/21/24 07:43
09/20/24 09/21/24 09/22/24
06:59 06:59 06:59
Actual Weight 96.2 kg
Body Mass Index (BMI) 29.6
Lab Results
09/21/24 05:07
09/21/24 05:08
WBC 10.5 10^3/uL (4.8-10.8) 09/21/24 05:07
Hgb 14.3 g/dL (13.0-18.0) 09/21/24 05:07
Hct 45.9 % (39.0-52.0) 09/21/24 05:07
Plt Count 193 10^3/uL (130-400) 09/21/24 05:07
Abs Immat Gran (auto) 0.0 10^3/uL (0-0.05) 09/20/24 11:50
Neutrophils % 83.2 % (42.2-75.2) H 09/20/24 11:50
Physical Exam
General: No Apparent Distress
HEENT: Anicteric and Other (scalp skin defect); Negative Moist Mucous Membranes
Respiratory: Non Labored Respirations
GI: Soft, Non Tender, Non Distended and Other (NGT in place with mucoid outputs)
Skin: Warm and Dry
Neuro: Awake, Alert and AO x 3
Psych: Calm
Data Reviewed
-
Radiology: Image Personally Visualized and interpreted, Report Reviewed by me, Discussed with Physician and Discussed with Patient
CT Scan: Image Personally Visualized and interpreted, Report Reviewed by me, Discussed with Physician and Discussed with Patient
Labs: Labs Reviewed by me, Discussed with Physician, Discussed with Nurse and Discussed with Family
Assessment / Plan
-
Mr Ortega is a 79 yo male with a history of skin ca s/p MOHS (scalp), CAD s/p PCI 02/2023, PVC/VT ablation 06/13/23, CKD, NIDDM, GERD, and known hiatal hernia who presents with nausea and vomiting which developed while he was eating dinner at a
restaurant. CT imaging reviewed with large hiatal hernia present and GOO secondary to gastric volvulus. No further n/v since presentation. An NGT was placed in the ED. XR in follow up with malpositioned NGT. No leukocytosis, Cr appears to be at
baseline.
Would recommend surgical intervention with either hiatal hernia repair or gastropexy. Timing to be determined. Will need to do more urgently on this admission if unable to resolve GOO with NGT decompression.
--Continue with NGT to wall suction. Repositioned at bedside given XR findings (pulled back 16cm), will recheck placement with follow up xr
--Will check UGI imaging with contrast tomorrow after NGT decompression
--Gastroenterology following with us
[2024-09-21] MEDS: LR 1000 IV (11:23)
--- NOTE | 2024-09-21 11:49 | W.PN.HOSP.TC ---
Today's Communication/Plan
-
NGT Decompression
Check CA 19-9
Assessment / Plan
Assessment / Plan
79-year-old male presented with abdominal pain nausea and vomiting
CT scan of the abdomen pelvis-large hiatal hernia. Gastric volvulus with mesentery axial rotation. Gastric outlet obstruction. Nonspecific soft tissue stranding of the distal periaortic fat possibly nonspecific inflammatory changes such as
retroperitoneal fibrosis or vascular inflammatory condition. 1.6 Endometrin pancreatic soft tissue mass
Cardiovascular system S1-S2 appreciated
Chest clear to auscultation
Abdomen soft and nontender no pedal edema
# Gastric volvulus with central axial rotation
Gastric outlet obstruction secondary to above
Continue n.p.o. with IV fluids ,NG tube decompression
Continue PPI IV
General Surgery following
May need gastropexy, but unclear if he would need surgery for the pancreatic mass depending on stage
4 upper GI series tomorrow
If patient is getting gastropexy may want to schedule an EUS at the same time.
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
Added on CA 19-9
May need EUS/Biopsy
Needs MRI at some point
GI evaluation
# History of brief NSVT status post ablation March 2023 and May 2023. Repeat ablation complicated by pericardial effusion and MYRNA. Plan for medical therapy. Continue amiodarone 200 twice daily when can take PO. Amiodarone has a long half-life
therefore okay to hold off now.
# Paroxysmal atrial fibrillation post ablation-anticoagulation not recommended by EP.
# Chronic kidney disease stage III-follow creatinine
# Coronary disease-rectal aspirin. Hold statin as n.p.o.
# Hyperlipidemia- hold statin as n.p.o.
# Hypertension-hold lisinopril, amlodipine as n.p.o. as needed hydralazine ordered
# Diabetes-hold glipizide and Jardiance as n.p.o. Sliding scale coverage with Accu-Cheks
# GERD-continue PPI IV
# History of malignant melanoma
# Diverticulosis
# Ex-smoker
# DVT prophylaxis- subcutaneous heparin
# Full code
D/W Surgery
Discussed with at bedside
Discussed with nursing
Part of this note was created using voice recognition system. Occasional wrong word or��sound alike� substitutions may have inadvertently occurred due to the inherent limitations of voice recognition software. If noted kindly bring it to my
attention for correction.
Anticipated Discharge: > 48 hours
Subjective/Interval History
-
Date of Service: September 21, 2024
Objective Data
-
Labs:
Laboratory Results
09/21/24 09/21/24
05:07 05:08
WBC 10.5
Hgb 14.3
Hct 45.9
Plt Count 193
Sodium 146 H
Potassium 4.2
Chloride 106
Carbon Dioxide 30
BUN 55 H
Creatinine 2.5 H
Glucose 137 H
Calcium 9.4
Vital Signs:
Vital Signs
Temp Pulse Resp BP Pulse Ox
97.9 F 79 14 128/78 96
09/21/24 07:43 09/21/24 07:43 09/21/24 07:43 09/21/24 07:43 09/21/24 07:43
I&O
09/20/24 09/21/24 09/22/24
06:59 06:59 06:59
Intake Total 1080 / 1080 50 / 50
Output Total 1270 / 1270 150 / 150
Balance -190 / -190 -100 / -100
[2024-09-21 11:56] LABS: Glucose - Point of Care 127 mg/dl (70-99)
[2024-09-21] MEDS: HURRICAINE SPRAY 1 APPLIC TOPICAL (12:22)
[2024-09-21 16:40] LABS: Glucose - Point of Care 115 mg/dl (70-99)
[2024-09-22 00:33] LABS: Glucose - Point of Care 114 mg/dl (70-99)
[2024-09-22] MEDS: LR 1000 IV ×3 (02:08→20:43)
[2024-09-22] MEDS: ZOFRAN 4 MG IV (02:44)
--- NOTE | 2024-09-22 05:45 | W.PN.HOSP.TC ---
Today's Communication/Plan
-
Follow up GI series
diet NGT as per surgery/GI
IVF support
glycemic control
Assessment / Plan
Assessment / Plan
Physical Exam
General: No acute distress, appears comfortable at this time
HEENT: Normocephalic Atraumatic PERRLA, NGT in place
Pulm: Clear to Auscultation b/l
Card: S1/S2 RRR
Abd: soft nontender decreased bowel sounds
Ext: no cyanosis or edema.
Neuro: AOx3
Psych: Calm
79-year-old male presented with abdominal pain nausea and vomiting
CT scan of the abdomen pelvis-large hiatal hernia. Gastric volvulus with mesentery axial rotation. Gastric outlet obstruction. Nonspecific soft tissue stranding of the distal periaortic fat possibly nonspecific inflammatory changes such as
retroperitoneal fibrosis or vascular inflammatory condition. 1.6 Endometrin pancreatic soft tissue mass
# Gastric volvulus with central axial rotation
Gastric outlet obstruction secondary to above
Continue n.p.o. with IV fluids ,NG tube decompression
Continue PPI IV
General Surgery eval appreciated
May need gastropexy, but unclear if he would need surgery for the pancreatic mass depending on stage
pending GI series
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
CA 19-9 pending
May need EUS/Biopsy
Needs MRI at some point
GI evaluation appreciated
# History of brief NSVT status post ablation March 2023 and May 2023. Repeat ablation complicated by pericardial effusion and MYRNA. Plan for medical therapy. Continue amiodarone 200 twice daily when can take PO. Amiodarone has a long half-life
therefore okay to hold off now.
#Mild Hypernatremia
monitor
# Paroxysmal atrial fibrillation post ablation-anticoagulation not recommended by EP.
# Chronic kidney disease stage III-follow creatinine
# Coronary disease-rectal aspirin. Hold statin as n.p.o.
# Hyperlipidemia- hold statin as n.p.o.
# Hypertension-hold lisinopril, amlodipine as n.p.o. as needed hydralazine ordered
# Diabetes-hold glipizide and Jardiance as n.p.o. Sliding scale coverage with Accu-Cheks
# GERD-continue PPI IV
# History of malignant melanoma
# Diverticulosis
# Ex-smoker
# DVT prophylaxis- subcutaneous heparin
# Full code
discussed with patient and patient's Morena
I spent a total of 45 minutes with the patient or on the floor. More than 50% of this time involved counseling and coordination of care.
Anticipated Discharge: 24 - 48 hours
Subjective/Interval History
-
Date of Service: September 22, 2024
Seen and examined at bedside in no acute distress sitting up comfortably in chair. Reports significant relief in symptoms since NGT decompression.
Objective Data
-
Labs:
Laboratory Results
09/22/24
06:00
WBC Pending
Hgb Pending
Hct Pending
Plt Count Pending
Sodium Pending
Potassium Pending
Chloride Pending
Carbon Dioxide Pending
BUN Pending
Creatinine Pending
Glucose Pending
Calcium Pending
Total Bilirubin Pending
AST Pending
ALT Pending
Alkaline Phosphatase Pending
Vital Signs:
Vital Signs
Temp Pulse Resp BP Pulse Ox
98.4 F 79 20 128/66 94
09/21/24 15:10 09/21/24 23:53 09/21/24 23:53 09/21/24 23:53 09/22/24 02:29
I&O
09/20/24 09/21/24 09/22/24
06:59 06:59 06:59
Intake Total 1080 / 1080 50 / 50
Output Total 1270 / 1270 150 / 150
Balance -190 / -190 -100 / -100
[2024-09-22 06:00] VITALS: BMI 28.6
[2024-09-22 06:24] LABS: Glucose - Point of Care 83 mg/dl (70-99)
[2024-09-22 07:39] VITALS: BP 127/78
[2024-09-22 08:24] LABS: Hematocrit 43.6 % (39.0-52.0); Hemoglobin 13.4 g/dL (13.0-18.0); Mean Corp Hgb Conc. 30.7 g/dL (33.0-37.0); Mean Corpuscular Volume 91.2 fL (80.0-94.0); Platelet Count 175 10^3/uL (130-400); Red Blood Cell Count 4.78 10^6/uL (4.70-6.10); Red Cell Dist. Width 18.8 % (11.5-14.5); White Blood Cell Count 9.6 10^3/uL (4.8-10.8)
[2024-09-22 08:52] LABS: ALT (SGPT) 35 U/L (0-50); AST (SGOT) 35 U/L (17-59); Albumin 3.5 g/dl (3.5-5.0); Alkaline Phosphatase 71 U/L (38-126); Blood Urea Nitrogen 64 mg/dl (9-20); Calcium 8.9 mg/dl (8.4-10.2); Carbon Dioxide 28 mmol/L (22-30); Chloride 110 mmol/L (98-107); Direct Bilirubin 0.3 mg/dl (0.0-0.4); Estimated Creatinine Clearance 32 ml/min; Glucose 89 mg/dl (70-99); Potassium 4.2 mmol/L (3.5-5.1); Sodium 147 mmol/L (135-145); Total Bilirubin 0.8 mg/dl (0.2-1.3); Total Protein 6.3 g/dl (6.3-8.2); eGFR 33.32
[2024-09-22] MEDS: NSS (PRESERVATIVE FREE) 10 ML IV (09:24)
[2024-09-22] MEDS: PROTONIX IV 40 MG IV (09:25)
--- NOTE | 2024-09-22 09:53 | CM ---
CM reviewed medical records. Patient off unit at this time.
On record review, patient lives with . Patient is active with his PCP Dr. Doyle. Patient uses [facility]. Patient does not have a documented history of VN or SNF.
CM will continue to follow for discharge planning needs.
--- NOTE | 2024-09-22 11:30 | W.PN.GS2 ---
Today's Communication / Plan
-
-- DC NGT, trial of clears
-- Dietary education provided would plan for DC on fulls for 2-3 weeks with advancement to soft food diet
-- Outpatient surgical follow-up to discuss PEH repair
-- Will need close GI follow-up as well given pancreatic mass with need for EGD related to PEH work-up and h/o Barnhart's and possible EUS with biopsy
Assessment / Plan
-
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
Clinically improved with NGT decompression. UGI with no evidence of obstruction. Plan for removal of NGT and trial of clears.
The natural history and pathophysiology of paraesophageal hernias was briefly discussed. Options for management including medical management with modified diet (small frequent meals with avoidance of large bulky foods, chew food thoroughly) and
antacid medications versus surgical management were considered and discussed. The pros and cons of both approaches was discussed. Specifically, we discussed future episodes of obstruction with potential nausea and vomiting and possible pneumonia,
chest and abdominal pain and discomfort, as well as increased size with time versus surgical risks. No need for emergent surgical repair at this time given symptomatic improvement and UGI results. Furthermore, would recommend further workup of his
pancreatic head lesion with outpatient CT scan pancreas protocol as well as EGD/EUS with biopsy. 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 All
questions answered. Tentative plan for outpatient surgical follow-up.
-- DC NGT, trial of clears
-- Dietary education provided would plan for DC on fulls for 2-3 weeks with advancement to soft food diet
-- Outpatient surgical follow-up to discuss PEH repair
-- Will need close GI follow-up as well given pancreatic mass with possible EGD/EUS with biopsy
Subjective Data
-
Date of Service: September 22, 2024
No complaints. Denies any chest or abdominal discomfort. Admission symptoms have resolved. No nausea or vomiting. Afebrile.
Objective Data
-
Intake and Output
09/21/24 09/22/24 12
06:59 06:59 06:59
Intake Total 1080 / 1080 930 / 930
Output Total 1270 / 1270 600 / 600
Balance -190 / -190 330 / 330
Intake:
IV fluids (Total) 1040 / 1040 880 / 880
Lr 1,000 ml @ 80 mls/hr IV . 1040 / 1040
[id number] SHERRI Rx#:[id number]
Amount instilled into GI Tube ( 40 / 40 50 / 50
Total)
[place] Sump 50 / 50
Output:
Gastrointestinal tube output ( 570 / 570 150 / 150
Total)
[place] Sump 150 / 150
Urine, Voided 700 / 700 450 / 450
Other:
Number of approximated LARGE 1
amounts of urine
Vital Signs
Temp Pulse Resp BP Pulse Ox
98.4 F 72 18 127/78 92
09/22/24 07:39 09/22/24 07:39 09/22/24 07:39 09/22/24 07:39 09/22/24 07:39
Lab Results
09/22/24 07:09
09/22/24 07:09
Calcium 8.9 mg/dl (8.4-10.2) 09/22/24 07:09
Total Bilirubin 0.8 mg/dl (0.2-1.3) 09/22/24 07:09
Direct Bilirubin 0.3 mg/dl (0.0-0.4) 09/22/24 07:09
AST 35 U/L (17-59) 09/22/24 07:09
ALT 35 U/L (0-50) 09/22/24 07:09
Alkaline Phosphatase 71 U/L (38-126) 09/22/24 07:09
Total Protein 6.3 g/dl (6.3-8.2) 09/22/24 07:09
Albumin 3.5 g/dl (3.5-5.0) 09/22/24 07:09
Physical Exam
-
Gen: NAD
HEENT: NGT with clear gastric outputs
Abd: obese, soft, NT/ND, non-peritoneal
[2024-09-22 12:02] LABS: Glucose - Point of Care 98 mg/dl (70-99)
[2024-09-22] MEDS: TYLENOL 650 MG PO (12:12)
--- NOTE | 2024-09-22 12:59 | PN.CDI ---
CDI
- -
CDI:
Physician Documentation Request
Admit Date: 09/20/24 17:38
Dear Doctor Meron,
Please review the following and provide your response in the progress notes.
Clinical Indicators:
Laboratory Tests
09/20/24 09/21/24 09/22/24
11:50 05:08 07:09
Sodium 144 146 H 147 H
Based on the above, please clarify in the progress notes, the appropriate diagnosis, if significant, that supports the above abnormalities and additional evaluation, monitoring and/or treatment rendered:
Hypernatremia
Abnormal lab value, clinically insignificant
Other(please specify)
Use of terms such as suspected, likely, concern for, or probable (associated with a specific diagnosis that is being evaluated, monitored, or treated as if it exists) are acceptable and can be coded in the inpatient setting, when documented at the
time of discharge.
Thank you,
Cecily Samuel RN BSN CCDS
CDI Specialist
please contact via tiger text
Please use your independent medical judgment in providing your response.
--- NOTE | 2024-09-22 14:00 | PTCARENOTE ---
Pt ate 100% of clears tray for lunch. Pt feels well. Denies n/v/abd pain.
--- NOTE | 2024-09-22 14:09 | W.PN.GI.CBS2 ---
Addendum entered and electronically signed by Francheska Rust MD 09/22/24 15:32:
Patient has appointment with Dr. Cronin on 09/30
Original Note:
Today's Communication / Plan
-
Advance diet to full liquids tommorow
Pancreatic mass evaluation on outpatient basis
Dietary measures for Gastric volvulus
PEH repair ---Surgery provided outpatient appointment
Assessment / Plan
-
IMPRESSION
A 79y/M with PMH of DMtype2,Benign hypertension,CAD,GERD,Hiatal hernia who presented with nausea,vomiting and abdominal pain.
Bowel movement today,normal with no blood
Surgery provided outpatient appointment to discuss PEH repair
On clear liquid diet,tolerating well
Denies any abdominal pain,nausea,vomiting or heaves
ASSESSMENT/PLAN
1.Gastric Volvulus
Clinically improved with NGT decompression. UGI with no evidence of obstruction
Lfts and,lipase normal
Patient opted to consider dietary modification first and would think over the PEH repair on outpatient basis
2. Pancreatic mass
CT CHEST/ABDOMEN/PELVIS 09/20/2024
IMPRESSION:
Large hiatal hernia; combination hernia with a sliding component as well as a paraesophageal component.
Gastric volvulus with mesentero-axial rotation. Gastric outlet obstruction secondary to extrinsic compression at the level of the gastric antrum/pylorus, as described. No gastric wall thickening, soft tissue stranding, or fluid within the hernia.
Nonspecific soft tissue stranding of the distal periaortic fat extending along the iliac vessels, in a relatively symmetric bilateral fashion. Exact etiology uncertain. Possibly nonspecific inflammatory changes (retroperitoneal fibrosis), or
vascular inflammatory condition/vasculitis. No aneurysm.
CA19-9 pending
MRI abdomen followed by EUS and biopsy on outpatient basis
Advance diet as tolerated
Subjective
Subjective
Date of Service: September 22, 2024
No active issues,Patient feels well and tolerating clear liquid diet
Objective
Data Reviewed
Laboratory Data:
Laboratory Results
09/22/24 07:09
09/22/24 07:09
Laboratory Results
Total Bilirubin 0.8 mg/dl (0.2-1.3) 09/22/24 07:09
AST 35 U/L (17-59) 09/22/24 07:09
ALT 35 U/L (0-50) 09/22/24 07:09
Alkaline Phosphatase 71 U/L (38-126) 09/22/24 07:09
Lipase 54 U/L (23-300) 09/20/24 11:50
Vital Signs and I&O:
Vital Signs
Temp Pulse Resp BP Pulse Ox
98.4 F 72 18 127/78 96
09/22/24 07:39 09/22/24 07:39 09/22/24 07:39 09/22/24 07:39 09/22/24 12:42
I&O
09/21/24 09/22/24 09/23/24
06:59 06:59 06:59
Intake Total 1080 / 1080 930 / 930
Output Total 1270 / 1270 600 / 600
Balance -190 / -190 330 / 330
Physical Exam
Physical Exam
HEENT: Anicteric and Moist mucous membranes
Cardiology: Normal Sinus Rhythm, S1 and S2
Pulmonary: Clear
GI: Soft, Non Distended and Normal Bowel Sounds
Extremities: Edema and Pulses Present
Neuro: Non Focal
[2024-09-22 15:29] VITALS: BP 114/70
[2024-09-22 16:31] LABS: Glucose - Point of Care 76 mg/dl (70-99)
[2024-09-22 19:58] LABS: Glucose - Point of Care 99 mg/dl (70-99)
--- NOTE | 2024-09-22 20:29 | PTCARENOTE ---
Received pt awake, alert, oriented without c/o pain sitting up in chair. Pt able to ambulate independently into bathroom. Skin intact, trace lower extremity edema. Abdomen soft, rounded, with normal active BS. IVF infusing. Refer to assessment
documentation for full shift assessment. Plan of care reviewed and updated with pt.
[2024-09-22 21:47] LABS: Glucose - Point of Care 102 mg/dl (70-99)
[2024-09-22 23:39] VITALS: BP 113/71
[2024-09-23 04:19] LABS: CA 19-9 13 U/mL (<=35)
[2024-09-23 05:23] LABS: Hematocrit 40.9 % (39.0-52.0); Hemoglobin 12.3 g/dL (13.0-18.0); Mean Corp Hgb Conc. 30.1 g/dL (33.0-37.0); Mean Corpuscular Hgb 27.6 pg (27.0-31.0); Mean Corpuscular Volume 91.7 fL (80.0-94.0); Mean Platelet Volume 10.5 fL (7.4-10.4); Platelet Count 146 10^3/uL (130-400); Red Blood Cell Count 4.46 10^6/uL (4.70-6.10); Red Cell Dist. Width 18.3 % (11.5-14.5); White Blood Cell Count 5.9 10^3/uL (4.8-10.8)
[2024-09-23 06:04] LABS: Blood Urea Nitrogen 54 mg/dl (9-20); Calcium 8.3 mg/dl (8.4-10.2); Carbon Dioxide 28 mmol/L (22-30); Chloride 110 mmol/L (98-107); Estimated Creatinine Clearance 38 ml/min; Glucose 98 mg/dl (70-99); Magnesium 2.6 mg/dl (1.6-2.3); Phosphorus 3.1 mg/dl (2.5-4.5); Sodium 144 mmol/L (135-145)
--- NOTE | 2024-09-23 06:59 | W.PN.HOSP.TC ---
Today's Communication/Plan
-
discharge
Assessment / Plan
Assessment / Plan
Physical Exam
General: No acute distress, appears comfortable at this time
HEENT: Normocephalic Atraumatic PERRLA
Pulm: Clear to Auscultation b/l
Card: S1/S2 RRR
Abd: soft nontender bowel sounds present
Ext: no cyanosis or edema.
Neuro: AOx3
Psych: Calm
79-year-old male presented with abdominal pain nausea and vomiting
CT scan of the abdomen pelvis-large hiatal hernia. Gastric volvulus with mesentery axial rotation. Gastric outlet obstruction. Nonspecific soft tissue stranding of the distal periaortic fat possibly nonspecific inflammatory changes such as
retroperitoneal fibrosis or vascular inflammatory condition. 1.6 Endometrin pancreatic soft tissue mass
# Gastric volvulus with central axial rotation
Gastric outlet obstruction secondary to above
upper gi series appreciated
Surgery eval appreciated
-NGT discontinued, diet advanced gradually from clear to Full liquid, tolerated
-cleared for discharge on full liquids 2-3 weeks with advancement to soft food following
-outpt follow up for potential benefit PEH repair.
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
CA 19-9 13 wnl
GI eval appreciated considering MRI/EGD/EUS/bx to be arranged in outpatient follow up, appt scheduled for 09/30
# History of brief NSVT status post ablation March 2023 and May 2023. Repeat ablation complicated by pericardial effusion and MYRNA. Plan for medical therapy. Continue amiodarone 200 twice daily
#Mild Hypernatremia
monitor
# Paroxysmal atrial fibrillation post ablation-anticoagulation not recommended by EP.
# Chronic kidney disease stage III-follow creatinine
# Coronary disease-rectal aspirin. Hold statin as n.p.o.
# Hyperlipidemia- resume statin
# Hypertension- resume home lisinopril, amlodipine
# Diabetes- resume home Jardiance, cont hold home glipizide, sugars well controlled at this time, recent A1c 6.4 at goal diabetes mgmt <7.0
# GERD-continue PPI
# History of malignant melanoma
# Diverticulosis
# Ex-smoker
# DVT prophylaxis- subcutaneous heparin
# Full code
Medically stable for discharge home with outpatient follow up recommendations.
Total Time Preparing Discharge ___40____ minutes including examination of the patient, summary of the hospital stay, instructions for continuing care to all relevant caregivers; and preparation of discharge records, prescriptions, and referral
forms if necessary.
Anticipated Discharge: Today
Subjective/Interval History
-
Date of Service: September 23, 2024
Seen and examined at bedside in no acute distress sitting up comfortably in bed. Reports tolerating full liquid diet well. Also reports having bowel movements. Generally reports feeling well. Denies new acute issues at this time. Eager to go
home.
Objective Data
-
Labs:
Laboratory Results
09/23/24
05:12
WBC 5.9
Hgb 12.3 L
Hct 40.9
Plt Count 146
Sodium 144
Potassium 4.0
Chloride 110 H
Carbon Dioxide 28
BUN 54 H
Creatinine 1.7 H
Glucose 98
Calcium 8.3 L
Vital Signs:
Vital Signs
Temp Pulse Resp BP Pulse Ox
98.5 F 65 18 113/71 93
09/22/24 23:39 09/22/24 23:39 09/22/24 23:39 09/22/24 23:39 09/22/24 23:39
I&O
09/21/24 09/22/24 09/23/24
06:59 06:59 06:59
Intake Total 1080 / 1080 930 / 930 1200 / 1200
Output Total 1270 / 1270 600 / 600 340 / 340
Balance -190 / -190 330 / 330 860 / 860
[2024-09-23 07:18] LABS: Glucose - Point of Care 96 mg/dl (70-99)
[2024-09-23] MEDS: NSS (PRESERVATIVE FREE) 10 ML IV (07:38)
[2024-09-23] MEDS: PROTONIX IV 40 MG IV (07:38)
[2024-09-23 07:42] VITALS: BP 149/76
--- NOTE | 2024-09-23 08:44 | W.PN.GS2 ---
Today's Communication / Plan
-
Adv to Fulls --> DC
Assessment / Plan
-
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
Clinically improved with NGT decompression. UGI with no evidence of obstruction. Plan for removal of NGT and trial of clears.
The natural history and pathophysiology of paraesophageal hernias was briefly discussed. Options for management including medical management with modified diet (small frequent meals with avoidance of large bulky foods, chew food thoroughly) and
antacid medications versus surgical management were considered and discussed. The pros and cons of both approaches was discussed. Specifically, we discussed future episodes of obstruction with potential nausea and vomiting and possible pneumonia,
chest and abdominal pain and discomfort, as well as increased size with time versus surgical risks. No need for emergent surgical repair at this time given symptomatic improvement and UGI results. Furthermore, would recommend further workup of his
pancreatic head lesion with outpatient CT scan pancreas protocol as well as EGD/EUS with biopsy. 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 All
questions answered. Tentative plan for outpatient surgical follow-up.
-- Adv to FLD
-- OK for DC home when tolerating
-- Dietary education provided would plan for DC on fulls for 2-3 weeks with advancement to soft food diet
-- Outpatient surgical follow-up to discuss PEH repair
-- Will need close GI follow-up as well given pancreatic mass with possible EGD/EUS with biopsy
Subjective Data
-
Date of Service: September 23, 2024
Improved. No complaints. Passing flatus margoth CLD
Objective Data
-
Intake and Output
09/22/24 09/23/24 09/24/24
06:59 06:59 06:59
Intake Total 930 / 930 1200 / 1200
Output Total 600 / 600 340 / 340
Balance 330 / 330 860 / 860
Intake:
Oral fluids 1200 / 1200
IV fluids (Total) 880 / 880 0 / 0
IV piggybacks 0 / 0
Amount instilled into GI Tube ( 50 / 50
Total)
[place] Sump 50 / 50
Output:
Gastrointestinal tube output ( 150 / 150
Total)
[place] Sump 150 / 150
Urine, Voided 450 / 450 340 / 340
Other:
Number of approximated MODERATE 1
amounts of urine
Number of approximated LARGE 1 1
amounts of urine
How many times incontinent 1
SATURATED amount urine
Vital Signs
Temp Pulse Resp BP Pulse Ox
97.6 F 67 18 149/76 93
09/23/24 07:42 09/23/24 07:42 09/23/24 07:42 09/23/24 07:42 09/23/24 07:42
Lab Results
09/23/24 05:12
09/23/24 05:12
Calcium 8.3 mg/dl (8.4-10.2) L 09/23/24 05:12
Phosphorus 3.1 mg/dl (2.5-4.5) 09/23/24 05:12
Magnesium 2.6 mg/dl (1.6-2.3) H 09/23/24 05:12
Total Bilirubin 0.8 mg/dl (0.2-1.3) 09/22/24 07:09
Direct Bilirubin 0.3 mg/dl (0.0-0.4) 09/22/24 07:09
AST 35 U/L (17-59) 09/22/24 07:09
ALT 35 U/L (0-50) 09/22/24 07:09
Alkaline Phosphatase 71 U/L (38-126) 09/22/24 07:09
Total Protein 6.3 g/dl (6.3-8.2) 09/22/24 07:09
Albumin 3.5 g/dl (3.5-5.0) 09/22/24 07:09
Physical Exam
-
Gen: NAD
Abd: soft, nt, nd
--- NOTE | 2024-09-23 09:52 | PTCARENOTE ---
Pt ate 100% of full liquid breakfast. Tolerated well. Pt states 'I feel great.'
--- NOTE | 2024-09-23 10:07 | CM ---
Patient seen at bedside. Patient completed IMM and signed form placed on chart. Patient stated that he was uncertain if he was for discharge today or tomorrow but did not anticipate any discharge needs. CM will continue to follow for discharge
planning needs.
Plan; home with no needs anticipated.
[2024-09-23 12:08] LABS: Glucose - Point of Care 93 mg/dl (70-99)
--- NOTE | 2024-09-23 12:14 | W.DCSUMMARY ---
Discharge Summary
Discharge Data
Date of Admission: 09/20/24
Date of Discharge: 09/23/24
-
Pending Results: No
Discharge Plan
-
Patient Disposition: Home (Routine Discharge)
Discharge Diagnosis/Procedures: Gastric volvulus with central axial rotation
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
History NSVT
Paroxysmal atrial fibrillation post ablation
Chronic kidney disease stage III
Coronary artery disease
Hyperlipidemia
Hypertension
Non-insulin dependent diabetes
GERD
History of malignant melanoma
Diverticulosis
Condition: Fair
Diet: Other diet
Additional Diets: Continue with full liquid diet for 2-3 weeks following discharge then advance as tolerated to soft foods. Follow up with surgery and/or GI for further diet advancement recommendations.
Activity: As tolerated
Driving Restrictions: As prior to admission
Bathing Restrictions: None
Activity Restrictions/Additional Instructions:
Please follow up with primary care provider in 1 week of discharge, keep your appointment with GI, and follow up with Surgeon in 2-4 weeks of discharge.
Sugars have been well controlled while off Glipizide, does not appear to be necessary at this time so medication has been discontinued. Please follow up with primary care provider, Scrapper, or other healthcare provider involved in your care
before considering to resume.
Please take medications as prescribed/recommended and follow up with primary care provider and/or other healthcare provider involved in your care for further adjustments to your medication regimen as necessary.
Referrals:
Cristian Cronin MD [Active] - 09/30/24
Liset Doyle CRNP [Family Provider] - in one week
Abilio Arnold MD [Active] - in two to four weeks
Prescriptions:
Continued
pantoprazole 40 mg tablet,delayed release (DR/EC)
40 mg PO DAILY Qty: 90 10RF
aspirin 81 mg Tablet,Delayed Release (Dr/Ec)
81 mg PO DAILY
atorvastatin [Lipitor] 80 mg Tablet
80 mg PO QPM
lisinopril 10 mg Tablet
10 mg PO DAILY
Pepto-Bismol 262 mg Tablet
524 mg PO DAILYPRN PRN (Reason: gerd)
simethicone 80 mg Tablet,Chewable
80 mg PO BIDPRN PRN (Reason: gas pains)
Jardiance 10 mg Tablet
10 mg PO DAILY
ondansetron 4 mg tablet,disintegrating
4 mg PO Q8HPRN PRN (Reason: nausea and vomiting)
amiodarone 200 mg Tablet
200 mg PO BID
amlodipine [Norvasc] 10 mg Tablet
10 mg PO DAILY
Discontinued
glipizide 5 mg Tablet
2.5 mg PO DAILY
Discharge Orders:
Discharge Patient (As Directed); Ordered 09/23/24
Ordered By: Annmarie Chance
Discharge Date and Time
Print Language: BELIZEAN
[2024-09-23 13:15] VITALS: BP 124/70
== END 2024-09-23 13:55 | disposition home or self-care (01) | DRG 392 ==
LOC: 1 ACUTE 17:38
PROVIDERS: Nurse Practitioner Family; Physician Assistant; ADMITTING PHYSICIAN Internal Medicine; ATTENDING PHYSICIAN Internal Medicine; CONSULT PHYSICIAN Internal Medicine Gastroenterology; EMERGENCY PHYSICIAN Emergency Medicine; FAMILY PHYSICIAN Nurse Practitioner; OTHER PHYSICIAN Surgery
DX: K31.89 Other diseases of stomach and duodenum (principal); I13.0 Hypertensive heart and chronic kidney disease with heart failure and stage 1 through stage 4 chronic kidney disease, or unspecified chronic kidney disease; K31.1 Adult hypertrophic pyloric stenosis; N17.9 Acute kidney failure, unspecified; E87.0 Hyperosmolality and hypernatremia; I48.0 Paroxysmal atrial fibrillation; N18.32 Chronic kidney disease, stage 3b; I25.10 Atherosclerotic heart disease of native coronary artery without angina pectoris; E78.00 Pure hypercholesterolemia, unspecified; I50.9 Heart failure, unspecified; E11.22 Type 2 diabetes mellitus with diabetic chronic kidney disease; Z79.84 Long term (current) use of oral hypoglycemic drugs; K21.9 Gastro-esophageal reflux disease without esophagitis; Z85.820 Personal history of malignant melanoma of skin; E11.40 Type 2 diabetes mellitus with diabetic neuropathy, unspecified; F17.290 Nicotine dependence, other tobacco product, uncomplicated; G47.30 Sleep apnea, unspecified; I49.3 Ventricular premature depolarization; K22.70 Barrett's esophagus without dysplasia; Z79.82 Long term (current) use of aspirin; Z86.0100 Personal history of colon polyps, unspecified; K57.30 Diverticulosis of large intestine without perforation or abscess without bleeding; K44.9 Diaphragmatic hernia without obstruction or gangrene; K86.9 Disease of pancreas, unspecified; Z79.899 Other long term (current) drug therapy; Z95.5 Presence of coronary angioplasty implant and graft
CPT/HCPCS: 71046; 71250; 74018; 74176; 74240; 80048; 80053; 82248; 82962; 83036; 83690; 83735; 83880; 84100; 85025; 85027; 86301; 93005; 96374; 99285

== ENCOUNTER 2024-10-09 06:19 | Day surgery (SDC) | payer MEDICARE, SELFPAY ==
[2024-10-09 12:02] LABS: Glucose - Point of Care 103 mg/dl (70-99)
== END 2024-10-09 13:28 | disposition home or self-care (01) ==
LOC: GI 06:19
PROVIDERS: ATTENDING PHYSICIAN Internal Medicine Gastroenterology
DX: K44.9 Diaphragmatic hernia without obstruction or gangrene (principal); K20.90 Esophagitis, unspecified without bleeding; K22.89 Other specified disease of esophagus; K29.70 Gastritis, unspecified, without bleeding; Z01.818 Encounter for other preprocedural examination; K22.70 Barrett's esophagus without dysplasia; B37.81 Candidal esophagitis
CPT/HCPCS: 43239; 88305; 88312; 82962; 88342

== ENCOUNTER → 2024-11-17 11:46 | Outpatient (REF) | payer MEDICARE, SELFPAY | LOC: PAVMRI 11:46 | PROVIDERS: ATTENDING PHYSICIAN Internal Medicine Gastroenterology; FAMILY PHYSICIAN Nurse Practitioner | DX: K86.89 Other specified diseases of pancreas (principal) | CPT/HCPCS: 74183; A9575 ==

== ENCOUNTER → 2025-01-11 14:59 | Outpatient (REF) | payer MEDICARE, SELFPAY | LOC: HWRAD 14:59 | PROVIDERS: ATTENDING PHYSICIAN Physician Assistant; FAMILY PHYSICIAN Nurse Practitioner | DX: R05.3 Chronic cough (principal) | CPT/HCPCS: 71046 ==

== ENCOUNTER → 2025-01-28 09:52 | Outpatient (REF) | payer MEDICARE, SELFPAY | LOC: HWRAD 09:52 | PROVIDERS: ATTENDING PHYSICIAN Physician Assistant | DX: J18.9 Pneumonia, unspecified organism (principal) | CPT/HCPCS: 71046 ==

== ENCOUNTER 2025-04-22 06:38 | Day surgery (SDC) | payer MEDICARE, SELFPAY ==
[2025-04-14 09:12] VITALS: BMI 27.0
[2025-04-14 09:54] LABS: Hematocrit 45.0 % (39.0-52.0); Hemoglobin 14.4 g/dL (13.0-18.0); Mean Corp Hgb Conc. 32.0 g/dL (33.0-37.0); Mean Corpuscular Volume 93.2 fL (80.0-94.0); Platelet Count 186 10^3/uL (130-400); Red Cell Dist. Width 15.7 % (11.5-14.5)
[2025-04-14 10:14] LABS: Blood Urea Nitrogen 27 mg/dl (9-20); Calcium 9.1 mg/dl (8.4-10.2); Carbon Dioxide 26 mmol/L (22-30); Chloride 108 mmol/L (98-107); Estimated Creatinine Clearance 48 ml/min; Glucose 109 mg/dl (70-99); Potassium 4.7 mmol/L (3.5-5.1); Sodium 140 mmol/L (135-145); eGFR > 60.00
[2025-04-22] VITALS (10 sets, daily range): BP systolic 96–119; BP diastolic 58–73; BMI 27.0
[2025-04-22 13:06] LABS: Glucose - Point of Care 89 mg/dl (70-99)
[2025-04-22] MEDS: NORMOSOL-R/PLASMALYTE-A 1000 IV ×2 (13:06→21:02)
[2025-04-22] MEDS: TYLENOL 1000 MG PO (13:06)
--- NOTE | 2025-04-22 13:13 | OR.RPT ---
Operative Report
Operative Report
Patient Name: Cristian Ortega
: 1945
Date of Operation: 04/22/2025
Preoperative Diagnosis: Hiatal Hernia (Type III)
Postoperative Diagnosis: Same
Procedure(s):
Laparoscopic Paraesophageal Hernia Repair with Toupet Fundoplication
EGD
Surgeon(s):
Dr. Arnold
Health Care Social Worker(s):
Monty Barton MD
OBINNA More
Anesthesia: General
Estimated Blood Loss: 7 cc
Urine Output: None
Drains/Lines/Implants: None
Specimens:
None
HPI/Surgical Indications:
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 Exam, labs and imaging are consistent with a symptomatic hiatal hernia.
Risks/Benefits/Alternatives were discussed at length, and the patient agreed to proceed with surgery.
Findings:
The patient was noted to have a a large type III hiatal hernia with roughly 2/3 of the stomach in the chest. A large retroesophageal fat pad reduced. Sac excised. 3 cm intra-abdominal esophageal length achieved. Anterior and posterior vagus
nerves identified and preserved. The crural defect was approximated using 6 interrupted Ferny-pledgeted 0 Surgilon sutures. A posterior 270 fundoplication was performed after ligation of the short gastrics using six 0 Surgilon sutures. An EGD was
performed which identified a well situated fundoplication. Surgiflo was applied around the hiatus.
Procedure Description:
The patient was brought to the Operating Room and GETA was induced. A chavez catheter was placed and the patient was then placed in the supine, split-leg position, arms tucked, with all pressure-points padded. The abdomen was prepped and draped in
the usual sterile fashion and team timeout was performed confirming SCDs were on and functioning and that appropriate pre-operative antibiotics and DVT prophylaxis had been given. The abdomen was entered using a left subcostal Veress technique
followed by a left periumbilical 5 mm optiview trochar roughly 13 cm inferior to the xiphoid. Pneumoperitoneum to 15 mmHg pressure was obtained without difficulty and we confirmed that no injury had occurred during our entry. The patient was
positioned in steep reverse trendelenberg. Three (3) 5mm trocars were then placed along the upper abdomen and an 11 mm trocar was placed in the left subcostal region. A triangular liver retractor was introduced through the right most lateral port
and used to elevate the left lobe of the liver. The hiatal hernia was readily visible with the proximal one quarter of the stomach herniated up in the chest, this was reduced into the abdomen. We then began working on the right madhavi at '9 o'clock'
by opening up the pars flaccida no replaced left hepatic was identified. The peritoneal reflection line was identified and incised in the crural muscle fibers were identified. We then carried this dissection in a clockwise fashion to the '3
o'clock' position. We then returned back to the right madhavi and carried our dissection down to the '6 o'clock' position. We then turned our attention to the short gastrics which were ligated using harmonic energy device. We carried this to the
diaphragm and carefully peeled the fundus off of the diaphragm. There was a significant amount of scar tissue here and Dr. Barton scrubbed in at this point to assist. We continued from the previous dissection at '3 o'clock' and worked inferiorly
to the retroesophageal fat pad which was unusually large. A window was then created posterior to the esophagus and a [place] drain was wrapped around and tied with an Endoloop gaining control of the hiatus. As my malt specifications control assistant placed the esophagus on
gentle traction I was able to complete our posterior dissection and the posterior vagus was identified. We then worked on obtaining good intra-abdominal esophageal length using blunt dissection with the occasional short bursts of ultrasound cautery
to divide the attachments of the esophagus from the surrounding tissues. The pleura on both sides as well as the anterior and posterior vagii were identified and preserved throughout the case. Once we were satisfied with our intra-abdominal
esophageal length (3 cm) we worked to approximate our crural defect which was quite large using 6 interrupted Ferny-pledgeted 0 Surgilon sutures and 1 interrupted non-pledgeted 0 Surgilon suture. Care was taken to ensure the pledgets lay on the
lateral aspects of the crura and were not in contact with the esophagus. At this point Dr. Barton scrubbed out to perform an EGD which was notable for a long segment Barnhart's esophagus. It was felt the opening was a little too tight so the
nonpledgeted suture was cut out which facilitated passage of the scope through the GE junction. Satisfied with our crural repair, the hernia sac was excised. The angle of His was identified in the fundus was passed posteriorly around the esophagus
and a shoeshine maneuver was performed. A floppy, 2.5 cm posterior 270 degree fundoplication was performed using three (3) 0 silk sutures on each side of the esophagus. Care was taken not to ensnare the anterior vagus nerve which was identified
and preserved throughout its entire course. An EGD was then performed which demonstrated the wrap was in good position and the stomach was desufflated. The liver tractor was removed and we confirmed no injury to the liver had occurred. All ports
were removed under visualization and the pneumoperitoneum was evacuated. All trocar sites were closed at the skin level using 4-0 Monocryl followed by Dermabond. Overall, the patient tolerated the procedure well and was taken to the Recovery Room
postoperatively in stable condition.
I was the attending physician and performed the procedure with assistance of the PA above. The assistance of OBINNA More was required due to the complexity of the procedure. During the procedure Mayra assisted with port placement, retraction,
resection, and closure of the wound. Dr. Barton assisted briefly with the posterior fat pad dissection and performed the intraoperative EGD. I was present for all portions of the case, excluding skin closure.
Abilio Arnold MD
--- NOTE | 2025-04-22 13:49 | W.SUR.PREOP ---
Pre-Operative Surgical Note
-
I have examined this patient prior to the performance of the scheduled procedure.
The patient's condition is unchanged from the time of the current History and
Physical and the patient is able to undergo the scheduled procedure.
--- NOTE | 2025-04-22 13:49 | HP.FOC2 ---
Focused History & Physical
Chief Complaint
HPI:
Chief Complaint: Hiatal hernia, Barnhart's esophagus
HPI / Indication for Planned Procedure: This is an 80-year-old male with a symptomatic hiatal hernia. Will plan for a laparoscopic hiatal hernia repair with fundoplication.
Relevant Past Medical History: Negative
Relevant Social History: Negative
Relevant Family History: Negative
Relevant Past Surgical History: Negative
Review of Systems
Review of Pertinent Systems: All Systems Negative
Medication
See Medication form for detailed medications: Yes
Medication List (including Herbals & OTC):
aspirin 81 mg tablet,delayed release 81 mg PO DAILY 06/13/23
amiodarone 200 mg tablet 200 mg PO BID 09/20/24
amlodipine 10 mg tablet (Norvasc) 10 mg PO DAILY 09/20/24
empagliflozin 10 mg tablet (Jardiance) 10 mg PO DAILY 09/20/24
lisinopril 10 mg tablet 10 mg PO DAILY 09/20/24
cholecalciferol (vitamin D3) 50 mcg (2,000 unit) capsule (Vitamin D3) 50 mcg PO DAILY 04/15/25
pantoprazole 40 mg tablet,delayed release 40 mg PO BID 04/15/25
rosuvastatin 40 mg tablet 40 mg PO HS 04/15/25
vitamin B complex 1 cap PO DAILY 04/15/25
nitroglycerin 0.4 mg sublingual tablet 0.4 mg sublingual ONCE PRN chest pain 04/22/25
Medications Reviewed: Yes
Allergies and Reactions
Patient has Allergies: Yes
Noted Allergies and Reactions:
Allergy/AdvReac Type Severity Reaction Status Date / Time
No Known Allergies Allergy Verified 04/22/25 12:44
Pertinent Physical Exam
All Other Systems: Negative
Head/Neck: Normal
Diagnosis / Assessment
This is an 80-year-old male with a symptomatic hiatal hernia.
Plan / Procedure
Will plan for a laparoscopic hiatal hernia repair with fundoplication.
Anesthesia/Sedation to be done by Anesthesia Provider: Yes
[2025-04-22 17:43] LABS: Glucose - Point of Care 163 mg/dl (70-99)
[2025-04-22 19:04] LABS: Glucose - Point of Care 181 mg/dl (70-99)
--- NOTE | 2025-04-22 20:19 | W.IMMPOSTOP ---
Surgical Immed Post Op Note
-
Primary Surgeon: Abilio Arnold MD
Assisting Surgeon: Monty Barton MD
Pre-op Diagnosis: Hiatal hernia, Barnhart's esophagus
Post-op Diagnosis: Same
Procedure Performed:
Laparoscopic paraesophageal hernia repair with Toupet fundoplication
EGD
Anesthesia Type: General
Specimen / Cultures: None
Estimated Blood Loss: 23 cc
Complications: None
Operative Findings: Large type III hiatal hernia with roughly 2/3 of the stomach in the chest. Large retroesophageal fat pad reduced. Sac excised. Large hiatus closed posteriorly with 6 pledgeted 0 Surgilon sutures. 270 degree toupet
fundoplication. Surgiflo applied around the hiatus
POST OP PLAN:
Imaging: None
Labs: Routine AM
Diet: Advance to fulls slowly
Analgesia: Tylenol 650mg q6 Zak, Dilaudid 0.5mg q2h PRN
Neuro/vascular checks: Per unit
AC/AP: Ok for DVT PPx
Activity: Ad Ashley
Wound/Incisions/Drains: Routine
Home medications: Reordered
Abx: None
Dispo: RNF, anticipate hospital stay of 1 to 2 days.
--- NOTE | 2025-04-22 20:30 | PTCARENOTE ---
Received patient from PACU via bed accompanied by PACU RNs. Patient s/p laparoscopic hiatal hernia repair with fundoplication. x5 lap sites to abdomen, CDI with surgical glue. Castro in place draning yellow urine. Offers no complaints at this time.
VSS. Oriented to room/facility, instructed use of call roth and within reach, care ongoing.
[2025-04-22] MEDS: PACERONE 200 MG PO (21:00)
[2025-04-22] MEDS: TYLENOL 650 MG PO ×2 (21:01→23:55)
[2025-04-23 00:15] LABS: Glucose - Point of Care 147 mg/dl (70-99)
[2025-04-23 03:31] VITALS: BP 108/64
[2025-04-23] MEDS: TYLENOL PO (05:49)
[2025-04-23 06:11] LABS: Glucose - Point of Care 137 mg/dl (70-99)
[2025-04-23 07:20] VITALS: BP 117/68
--- NOTE | 2025-04-23 07:40 | W.PN.GS2 ---
Addendum entered and electronically signed by Monty Barton MD 04/23/25 14:01:
Patient seen and examined in follow-up independently of resident. Agree with documented progress note with additions noted here.
Overall patient feeling well postoperatively with typical postoperative pain at the incision sites as well as left scapular region
No nausea, no vomiting
Thirsty/some appetite
AFVSS
NAD AO x 3
ABD: Soft, nondistended, minimal incisional tenderness. Incisions with glue dressings.
A/P: POD #1 status post lap PEH repair with fundoplication
Clear liquid diet
Routine postoperative supportive care
Original Note:
Today's Communication / Plan
-
Plan:
- Advance diet to clears today as tolerated
- Continue PRN analgesia w tylenol
- DVT ppx: continue lovenox
- Dispo: pending tolerate PO solids
Assessment / Plan
-
Patient is an 80y M with hx of afib, CKD III, DM-II, Barnhart's esophagus, & hiatal hernia, now POD1 s/p hiatal hernia repair w fundoplication, recovering well.
Assessment: No post-op concerns. AVSS. Morning labs pending at time of note. Tolerating sips/chips without n/v. Incisional sites healing well. Awaiting return of post-op BM/flatus.
Plan:
- Advance diet to clears today as tolerated
- Continue PRN analgesia w tylenol
- DVT ppx: continue lovenox
- Dispo: pending tolerate PO solids
Time Spent
Total Time Spent with Patient (in minutes): 15
Subjective Data
-
Date of Service: April 23, 2025
Pt feeling well this am, pain well controlled, took tylenol overnight. Feels a bit of pressure in upper abdomen. No nausea/vomiting, tolerating sips & chips. Denies fever/chills overnight, was given extra blankets & feels comfortable. No BM/flatus
post-op yet. Urine through chavez.
Objective Data
-
Intake and Output
04/22/25 04/23/25 04/24/25
06:59 06:59 06:59
Output Total 1500 / 1500
Balance -1500 / -1500
Output:
Urine, Chavez 1500 / 1500
Vital Signs
Temp Pulse Resp BP Pulse Ox
97.7 F 72 20 117/68 93
04/23/25 07:20 04/23/25 07:20 04/23/25 07:20 04/23/25 07:20 04/23/25 07:20
Calcium 9.1 mg/dl (8.4-10.2) 04/14/25 09:22
Physical Exam
-
General: well-appearing, sitting up in bed
Cardiopulm: non-labored respirations
Abdominal: non-tender to palpataion, non-distended, incision sites clean without drainage or erythema, approximated with surgical glue
Patient has a chavez catheter: Yes
Patient has a central line: No
[2025-04-23 08:33] LABS: Hematocrit 39.6 % (39.0-52.0); Hemoglobin 13.3 g/dL (13.0-18.0); Mean Corp Hgb Conc. 33.6 g/dL (33.0-37.0); Mean Corpuscular Volume 91.9 fL (80.0-94.0); Nucleated Red Blood Cells % 0 % (-); Platelet Count 175 10^3/uL (130-400); Red Cell Dist. Width 15.7 % (11.5-14.5)
[2025-04-23] MEDS: NORVASC 10 MG PO (08:48)
[2025-04-23] MEDS: NSS (PRESERVATIVE FREE) 10 ML IV (08:48)
[2025-04-23] MEDS: PACERONE 200 MG PO ×2 (08:48→20:00)
[2025-04-23] MEDS: PROTONIX IV 40 MG IV (08:48)
[2025-04-23] MEDS: TYLENOL 650 MG PO ×5 (08:48→23:15)
[2025-04-23 09:12] LABS: Blood Urea Nitrogen 26 mg/dl (9-20); Calcium 8.1 mg/dl (8.4-10.2); Carbon Dioxide 21 mmol/L (22-30); Chloride 107 mmol/L (98-107); Estimated Creatinine Clearance 45 ml/min; Glucose 133 mg/dl (70-99); Potassium 5.0 mmol/L (3.5-5.1); Sodium 135 mmol/L (135-145); eGFR 55.53
--- NOTE | 2025-04-23 11:08 | CM ---
Patient seen at bedside on . Patient stated that he lives with his in a one story home. 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 Patient uses the
[facility] pharmacy and his PA is Liset SANON. Patient is anticipating discharge home today if he is able to tolerate the diet. Patient indicated that his will provide transportation home and he doesn't anticipate any discharge needs. CM
will continue to follow for discharge planning needs.
Plan; home with no needs anticipated at this time; watch for any VN needs.
[2025-04-23 11:11] VITALS: BP 116/69
[2025-04-23 11:58] LABS: Glucose - Point of Care 141 mg/dl (70-99)
[2025-04-23 15:34] VITALS: BP 102/65
[2025-04-23] MEDS: LOVENOX 40 MG SC (16:37)
[2025-04-23 19:19] VITALS: BP 125/74
[2025-04-23 23:15] VITALS: BP 121/81
[2025-04-24 03:14] VITALS: BP 113/72
[2025-04-24] MEDS: TYLENOL 650 MG PO ×3 (03:50→12:42)
[2025-04-24 06:22] LABS: Hematocrit 42.5 % (39.0-52.0); Hemoglobin 13.9 g/dL (13.0-18.0); Mean Corp Hgb Conc. 32.7 g/dL (33.0-37.0); Mean Corpuscular Volume 92.0 fL (80.0-94.0); Nucleated Red Blood Cells % 0 % (-); Platelet Count 165 10^3/uL (130-400); Red Cell Dist. Width 16.0 % (11.5-14.5)
[2025-04-24 06:45] LABS: Blood Urea Nitrogen 23 mg/dl (9-20); Calcium 8.2 mg/dl (8.4-10.2); Carbon Dioxide 27 mmol/L (22-30); Chloride 108 mmol/L (98-107); Estimated Creatinine Clearance 45 ml/min; Glucose 120 mg/dl (70-99); Potassium 4.6 mmol/L (3.5-5.1); Sodium 137 mmol/L (135-145); eGFR 55.53
[2025-04-24 07:20] VITALS: BP 113/76
[2025-04-24] MEDS: PACERONE 200 MG PO (08:14)
[2025-04-24] MEDS: NORVASC 10 MG PO (08:14)
[2025-04-24] MEDS: NSS (PRESERVATIVE FREE) 10 ML IV (08:15)
[2025-04-24] MEDS: PROTONIX IV 40 MG IV (08:15)
[2025-04-24 11:10] VITALS: BP 133/83
--- NOTE | 2025-04-24 11:55 | W.PN.GS2 ---
Today's Communication / Plan
-
dispo planning
Assessment / Plan
-
Patient is an 80y M with hx of afib, CKD III, DM-II, Barnhart's esophagus, & hiatal hernia
POD 2 s/p hiatal hernia repair w fundoplication, recovering well.
AFVSS
Tolerating FLD
OOB to chair, pain well managed
Passing flatus
Plan:
- FLD for the next few days, slowly advance to soft foods as tolerated
- Continue PRN analgesics
- Chavez removed for voiding trial
- DVT ppx: continue lovenox
- Discharge to home
Subjective Data
-
Date of Service: April 24, 2025
Pt seen and examined at bedside with Dr. Umana. Denies n/v. Pain in shoulders improved. OOB to chair. Tolerating diet without dysphagia. passing flatus. Pain well controlled
Objective Data
-
Intake and Output
04/23/25 04/24/25 04/25/25
06:59 06:59 06:59
Intake Total 600 / 600 1020 / 1020
Output Total 1500 / 1500 2550 / 2550 1300 / 1300
Balance -1500 / -1500 -1950 / -1950 -280 / -280
Intake:
Oral fluids 600 / 600 720 / 720
IV fluids (Total) 300 / 300
Output:
Urine, Chavez 1500 / 1500 2550 / 2550
Urine, Voided 1300 / 1300
Other:
Number of approximated MODERATE 1
amounts of urine
Vital Signs
Temp Pulse Resp BP Pulse Ox
97.9 F 85 16 133/83 98
04/24/25 11:10 04/24/25 11:10 04/24/25 11:10 04/24/25 11:10 04/24/25 11:10
Lab Results
04/24/25 05:35
04/24/25 05:35
Calcium 8.2 mg/dl (8.4-10.2) L 04/24/25 05:35
Physical Exam
-
General: well-appearing, oob to chair
Cardiopulm: non-labored respirations
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 Incisions with intact glue, no erythema
Patient has a chavez catheter: No
Patient has a central line: No
--- NOTE | 2025-04-24 12:03 | W.DS.TRANS ---
DC Summary - [facility]
-
Discharge Instructions:
Sleep Apnea Risk Intermediate
Discharge Diagnosis/Procedures Laparoscopic paraesophageal hernia repair
Diet Other diet
Additional Diets see handout. Continue on full liquids and
advance to soft foods slowly as tolerated
Activity No strenuous activity
Additional Activity Do not lift over 15-20lbs for the next 2-3 weeks
Bathing Restrictions OK to Shower
Wound Care Allow the glue to flake off your incisions on
its own over the next 2-3 weeks. Wash gently
with soap and water but avoid scrubbing or
picking the glue off.
Call your surgeon if you have a fever >100.5 or
nausea with vomiting.
Instructions:
Stand-Alone Forms:
Changes to Home Medications: No
Discharge Medications:
DC Medications w/original date entered in [facility]
aspirin 81 mg tablet,delayed release 81 mg PO DAILY 06/13/23
amiodarone 200 mg tablet 200 mg PO BID 09/20/24
amlodipine 10 mg tablet (Norvasc) 10 mg PO DAILY 09/20/24
empagliflozin 10 mg tablet (Jardiance) 10 mg PO DAILY 09/20/24
lisinopril 10 mg tablet 10 mg PO DAILY 09/20/24
cholecalciferol (vitamin D3) 50 mcg (2,000 unit) capsule (Vitamin D3) 50 mcg PO DAILY 04/15/25
pantoprazole 40 mg tablet,delayed release 40 mg PO BID 04/15/25
rosuvastatin 40 mg tablet 40 mg PO HS 04/15/25
vitamin B complex 1 cap PO DAILY 04/15/25
nitroglycerin 0.4 mg sublingual tablet 0.4 mg sublingual ONCE PRN chest pain 04/22/25
acetaminophen 325 mg tablet 650 mg (2 x 325 mg) PO Q4HPRN PRN mild pain #1 tab 04/24/25
tramadol 50 mg tablet 25 - 50 mg (0.5 - 1 x 50 mg) PO Q6HPRN PRN severe pain/breakthrough pain #8 tabs 04/24/25
Home Medication Changes
Pending Results: No
--- NOTE | 2025-04-24 14:45 | CM ---
Pt for dc to home with today.
IMM issued and signed.
Pt requesting VN referral to [facility].
No additional needs identified.
== END 2025-04-24 13:12 | disposition home or self-care (01) ==
LOC: SDS 06:38
PROVIDERS: ATTENDING PHYSICIAN Surgery; FAMILY PHYSICIAN Nurse Practitioner
DX: K44.9 Diaphragmatic hernia without obstruction or gangrene (principal)
CPT/HCPCS: 43281; 36415; 80048; 82962; 85025; 85027; 86850; 86900; 86901; C1729; P9045